=== PATIENT | female | born 1950 | race Caucasian/White ===

== ENCOUNTER → 2016-04-29 | Outpatient (CLI) | payer BC ==
[~2016-04-29] MED LIST: ASPI81TA57 PO; NAPR500T3 PO; OMEG10007 PO
--- NOTE | 2016-04-29 13:59 | MAMMOGRAPHY REPORT ---
BILATERAL DIGITAL SCREENING MAMMOGRAM WITH CAD: 04/29/2016 CLINICAL HISTORY: Routine screening. Patient has no complaints. TECHNIQUE: Current study was also evaluated with a Computer Aided Detection (CAD) system. COMPARISON: Comparison is made to exams dated: 05/16/2014 mammogram, 03/10/2013 mammogram, 2 mammogram, 03/04/2011 mammogram, 03/14/2010 stereotactic biopsy, and 03/03/2010 mammogram - [facility]. BREAST COMPOSITION: There are scattered areas of fibroglandular density in both breasts. FINDINGS: No suspicious masses, calcifications, or areas of architectural distortion are noted in e ither breast. There has been no significant interval change compared to prior exams. Scattered bilat eral benign-appearing calcifications are not significantly changed. A biopsy marker clip is again n oted in the left upper outer quadrant. Small benign appearing masses in the right upper outer quadr ant are stable, and likely represent benign intramammary lymph nodes. IMPRESSION: ACR BI-RADS CATEGORY 2: BENIGN There is no mammographic evidence of malignancy. A 1 year screening mammogram is recommended. The p atient will receive written notification of the results. Approximately 10% of breast cancers are not detected with mammography. A negative mammographic repor t should not delay biopsy if a clinically suggestive mass is present. Melissa Lutz M.D. /:04/29/2016 08:18:09 Lacemaker: Annette Cassidy, [facility] letter sent: Normal 1/2 BI-RADS Code: ACR BI-RADS Category 2: Benign
== END | disposition home or self-care (01) ==
LOC: C.MAMM 07:35
PROVIDERS: ATTEND Family Medicine
DX: Z12.31 Encounter for screening mammogram for malignant neoplasm of breast (principal)

== ENCOUNTER → 2016-05-26 | Outpatient (CLI) | payer BC | END | disposition home or self-care (01) | LOC: C.MAMM 09:14 | PROVIDERS: ATTEND Family Medicine | DX: Z78.0 Asymptomatic menopausal state (principal); M85.80 Other specified disorders of bone density and structure, unspecified site ==

== ENCOUNTER → 2016-09-05 | Outpatient (CLI) | payer BC ==
--- NOTE | 2016-09-05 09:34 | DIAGNOSTIC IMAGING REPORT ---
RIGHT FOOT MIN 3 VIEWS ROUTINE CLINICAL HISTORY: RIGHT FOOT PAIN Right pain COMPARISON: None. DISCUSSION: Moderate degenerative change of the intertarsal as well as tarsometatarsal complexes. No well-defined fracture dislocation. Heel spur. IMPRESSION: Moderate degenerative change. Heel spur. Electronically signed by: Jaylon Johnston M.D. 09/05/2016 9:32 AM Dictated Date/Time: 09/05/2016 9:31 AM
== END | disposition home or self-care (01) ==
LOC: C.LAB 08:59
PROVIDERS: ATTEND Family Medicine
DX: M79.671 Pain in right foot (principal); M77.31 Calcaneal spur, right foot

== ENCOUNTER → 2017-05-05 | Outpatient (CLI) | payer BC ==
--- NOTE | 2017-05-05 15:10 | MAMMOGRAPHY REPORT ---
BILATERAL DIGITAL SCREENING MAMMOGRAM TOMOSYNTHESIS WITH CAD: 05/05/2017 CLINICAL HISTORY: Routine screening. Patient has no complaints. TECHNIQUE: Breast tomosynthesis in addition to standard 2D mammography was performed. Current study was also evaluated with a Computer Aided Detection (CAD) system. COMPARISON: Comparison is made to exams dated: 04/29/2016 mammogram, 05/16/2014 mammogram, 03/10/2013 mammogram, 03/09/2012 mammogram, 03/04/2011 mammogram, and 03/14/2010 stereotactic biopsy - [facility]. BREAST COMPOSITION: There are scattered areas of fibroglandular density in both breasts. FINDINGS: No suspicious masses, calcifications, or areas of architectural distortion are noted in ei ther breast. There has been no significant interval change compared to prior exams. Scattered bilater al benign-appearing calcifications are not significantly changed. A biopsy marker clip is again note d within the left upper outer quadrant. IMPRESSION: ACR BI-RADS CATEGORY 2: BENIGN There is no mammographic evidence of malignancy. A 1 year screening mammogram is recommended. The pa tient will receive written notification of the results. Approximately 10% of breast cancers are not detected with mammography. A negative mammographic report should not delay biopsy if a clinically suggestive mass is present. Melissa Lutz M.D. /:05/05/2017 07:43:41 Napkin Band Wrapper: Annette Cassidy, [facility] letter sent: Normal 1/2 BI-RADS Code: ACR BI-RADS Category 2: Benign
== END | disposition home or self-care (01) ==
LOC: C.MAMM 07:09
PROVIDERS: ATTEND Family Medicine
DX: Z12.31 Encounter for screening mammogram for malignant neoplasm of breast (principal)

== ENCOUNTER 2018-11-06 18:12 | Inpatient (IN) ==
[2018-11-06] MEDS ORDERED: ONDANSETRON INJ 2 MG/ML 2 ML VIAL IV STA (18:16)
--- OUTSIDE RECORDS SUMMARY | 2018-11-06 18:16 | External Medical Summary | Continuity of Care Document ---
:1950 Author Name Aleah Horta, Provider Address Unavailable Unavailable , Care Team Providers Name Role Phone Margo Horta, Aldo Mcginnis Unavailable [email or web address] Unavailable Unavailable Unavailable Unavailable Unavailable Problems Active medical history not documented Allergies and Adverse Reactions Allergy history not documented Medications Medications not documented Procedures Procedures not documented Immunizations Immunizations not documented Plan of Treatment Planned Observations Planned Goals not documented Results No Known Results Results not documented
[2018-11-06] MEDS: HYDROmorphone INJ 0.5 MG/0.5 ML SYR IV PRN ×2 (18:26→19:39)
[2018-11-06 18:30] LABS: Basophils # (auto) 0.05 K/uL (0-0.2); Basophils % (auto) 0.5 %; Eosinophils # (auto) 0.36 K/uL (0-0.5); Hematocrit (blood only) 36.2 % (37-47); Hemoglobin 12.6 g/dL (12.0-16.0); Immature Granulocytes # (auto) 0.05 K/uL (0.00-0.02); Immature Granulocytes % (auto) 0.5 %; Lymphocytes # (auto) 1.92 K/uL (1.2-3.4); Lymphocytes % (auto) 21.1 %; Mean Corpuscular Hgb Conc 34.8 g/dL (32-36); Mean Corpuscular Volume 96.3 fL (80-100); Mean Platelet Volume 9.2 fL (7.4-10.4); Monocytes # (auto) 0.77 K/uL (0.11-0.59); Monocytes % (auto) 8.5 %; Neutrophils # (auto) 5.95 K/uL (1.4-6.5); Neutrophils % (auto) 65.4 %; Platelet Count 195 K/uL (130-400); RDW Coefficient of Variation 13.2 % (11.5-14.5); RDW Standard Deviation 46.2 fL (36.4-46.3); Red Blood Count 3.76 M/uL (4.2-5.4)
[2018-11-06 18:47] LABS: Albumin Level 3.9 gm/dl (3.4-5.0); BUN Creatinine Ratio 12.9 (10-20); Calcium 8.6 mg/dl (8.5-10.1); Creatinine Clr Calc Pharmacy 73.7 ml/min; Est GFR (African American) 85.3; Est GFR (Non-African American) 73.6; Potassium 3.1 mmol/L (3.5-5.1)
[2018-11-06 18:50] LABS: Bilirubin,Total 0.5 mg/dl (0.2-1); Globulin 4.1 gm/dl (2.5-4.0)
--- NOTE | 2018-11-06 19:46 | CT Scan Report ---
CT chest wo con CT DOSE: 436.39 mGy.cm HISTORY: Trauma fall, right rib pain TECHNIQUE: Multiaxial CT images of the chest were performed without contrast. A dose lowering techni que was utilized adhering to the principles of ALARA. COMPARISON: None. FINDINGS: Small parenchymal contusion lateral and inferior aspect right chest. There are no regions o f consolidation. There is a small right basilar pneumothorax identified anteriorly. Says maximum pleu ral separation at 1 cm. There is no significant shift of the cardiomediastinal silhouette. The left lung is considered clear. There are fractures of the right fourth fifth sixth and seventh ribs. These are seen in the mid axill carlos line on the right. In addition, there are fractures of the right Posterior seventh eighth and ninth ribs. The eighth rib fracture at its posterior aspect is comminute d. There are nondisplaced cortical fractures of the right transverse process of T7-T10. The thoracic spi ne Has several moderate compression deformities in the low thoracic region felt to be old by CT crite larisa. No acute compression deformity is seen. IMPRESSION: 1. Small right pneumothorax with a maximum pleural separation of 1 cm. 2. Mild multifocal lung contusions right mid and right lower lung region. 3. Multifocal fractures of the right fourth through ninth ribs 4. The posterior right eighth rib fracture is comminuted and angled. 5. Small right pleural effusion. 6. Fractures of the right transverse processes of T7-T10. 7. Several old compression deformities of the low thoracic region. The above report was generated using voice recognition software. It may contain grammatical, syntax or spelling errors. Electronically signed by: Jaylon Johnston M.D. 11/06/2018 7:44 PM
--- NOTE | 2018-11-06 20:59 | XRay Report ---
XR chest 1V portable CLINICAL HISTORY: rib fx and pneumo on CT. Baseline CXr dyspnea COMPARISON STUDY: CT same date FINDINGS: Small right apical pneumothorax. Maximum pleural separation is 1.7 cm. Scattered bilateral atelectatic change. No significant cardiac enlargement. IMPRESSION: Small right apical pneumothorax. Scattered atelectatic changes bilaterally. The above report was generated using voice recognition software. It may contain grammatical, syntax or spelling errors. Electronically signed by: Jaylon Johnston M.D. 11/06/2018 8:57 PM
--- NOTE | 2018-11-06 21:37 | History & Physical Report ---
Date of Service November 06, 2018 Assessment & Plan (1) Traumatic pneumohemothorax: 68F with PMH OA, here with mechanical fall with resultant rib fractures and traumatic pneumothorax requiring 1-3L via NC. States she was getting out of her above ground pool when she slipped on the ladder and hit her right side of her back on the side of the pool and then again on the ladder itself. She came to ED for further management, and was not short of breath, but was complaining of pain in that area. CT scan revealed multifocal fractures of the right fourth through ninth ribs, and small right pneumothorax max 1cm. CXR upright for baseline showed small right apical pneumothorax with max pleural separation 1.7 cm. Pt did not require oxygen upon arrival to the ED, but did after receiving IV dilaudid. Denies chest tightness or dyspnea. Endorses some bruising on right upper arm. Daughter and friend in the room corroborate the history. Nonrebreather mask was placed, and 15L O2 applied for treatment benefit not due to hypoxia. Traumatic pneumothorax 17mm -CT surgery consulted, appreciate recs: serial CXR at midnight, and AM -O2 as needed - desats with IV opioids temporarily -pain control with scheduled PO tramadol, then IV dilaudid PRN severe pain, tylenol -prn zofran -incentive spirometry to prevent complications like PNA -will hold off on chemical anticoagulation ppx given traumatic injury to chest FEN/GI: heart healthy diet. No fluids indicated at this time. DVT ppx: SCDs will hold off on chemical anticoagulation ppx given traumatic injury to chest CODE STATUS: FULL DISPO: Tele for observation, pain mgmt. Home once serial CXRs stable, pain control with PO medication Other ongoing medical problems Osteoarthritis: hold Mobic in light of chest trauma risk of bleeding A Stan RINALDI PGY3 FCM Resident (2) Pulmonary contusion: (3) Multiple fractures of ribs of right side: (4) Fracture of transverse process of thoracic vertebra: (5) Fall from slip, trip, or stumble: History of Present Illness Chief Complaint: fall onto ladder from 2 feet, rib fracture, traumatic pneumothorax Primary Care Provider: Yusuf Pichardo MD 68F with PMH OA who presents after mechanical fall with resultant rib fractures and traumatic pneumothorax requiring 1-3L via NC. States she was getting out of her above ground pool when she slipped on the ladder and hit her right side of her back on the side of the pool and then again on the ladder itself. She came to ED for further management, and was not short of breath, but was complaining of pain in that area. CT scan revealed multifocal fractures of the right fourth through ninth ribs, and small right pneumothorax max 1cm. CXR upright for baseline showed small right apical pneumothorax with max pleural separation 1.7 cm. Pt did not require oxygen upon arrival to the ED, but did after receiving IV dilaudid. Denies chest tightness or dyspnea. Endorses some bruising on right upper arm. Daughter and friend in the room corroborate the history. PMH arthritis, on mobic PSH noncontributory SH Nonsmoker. Lives at home, independent Allergies Allergy/AdvReac Type Severity Reaction Status Date / Time No Known Allergies Allergy Unverified 11/07/15 06:17 Home Medications Home Medications Medication Instructions Recorded Confirmed Type acetaminophen [Tylenol Arthritis 650 mg PO Q8H #30 tab 11/12/18 Rx Pain] ibuprofen 600 mg PO Q8H #30 tab 11/12/18 Rx oxycodone 5 mg PO QID #45 cap 11/12/18 Rx Past Med/Surg History Medical History TIA (transient ischemic attack) (Chronic) Fall from slip, trip, or stumble (Acute) Social History Preferred Language: Turkmen Communication Ability: Effective Motion Picture Narrator Required: No Beliefs That Will Affect Care: None Current Living Situation Comment: Daughter-Hayes Other Information That Helps Us Care for You: No Feels Safe at Home: Yes Safety Concerns: Feels Safe At This Time Smoking Status: Never smoker Hx Alcohol Use: Yes Alcohol type: beer Hx Substance Use: No Review of Systems Review of Systems: All systems reviewed & are unremarkable except as noted in HPI & below Physical Exam Physical Exam: Vitals noted and within normal limits with the exception of HTN GENERAL: Awake, alert to person, place, and time, nontoxic-appearing, in no distress. HENT: Normocephalic, atraumatic. Nasal cannula in place. Mucus membranes appear moist. EYES: Normal conjunctiva. Sclera non-icteric. EOMI. NECK: Supple. Full range of motion. No JVD. Trachea midline. RESPIRATORY: Clear to auscultation. Normal work of breathing. CARDIAC: Regular rate, normal rhythm. Extremities warm and well perfused, ABDOMEN: Soft, non-distended. Bowel sounds are normal. LOWER EXTREMITIES: Inspection of calves reveal equal size bilaterally. They are non-tender. No edema. No discoloration. NEURO: No gross focal motor deficits noted. Sensation in tact. CN II-XII grossly in tact. . PSYCH: Appropriate mood and affect. Cooperative. Examined with daughter and friend at bedside Exam as done by Jennifer Pierce MD, [employer]. Results & Data Vital Signs (Past 12 Hours) Vital Signs Temp Pulse Pulse Resp BP BP Pulse Ox 11/06/18 20:42 94 H 162/93 H 100 11/06/18 19:54 100 11/06/18 19:40 95 H 19 129/66 98 11/06/18 18:50 82 19 156/95 H 99 11/06/18 18:32 98 11/06/18 18:20 36.7 C 99 H 22 176/96 H 96 Laboratory Results 11/06/18 11/06/18 Range/Units 18:25 18:25 WBC 9.10 (4.8-10.8) K/uL RBC 3.76 L (4.2-5.4) M/uL Hgb 12.6 (12.0-16.0) g/dL Hct 36.2 L (37-47) % MCV 96.3 (80-100) fL MCH 33.5 (25-34) pg MCHC 34.8 (32-36) g/dL RDW Std Deviation 46.2 (36.4-46.3) fL RDW Coeff of Perry 13.2 (11.5-14.5) % Plt Count 195 (130-400) K/uL MPV 9.2 (7.4-10.4) fL Immature Gran % (Auto) 0.5 % Neut % (Auto) 65.4 % Lymph % (Auto) 21.1 % Phillips % (Auto) 8.5 % Eos % (Auto) 4.0 % Baso % (Auto) 0.5 % Immature Gran # (Auto) 0.05 H (0.00-0.02) K/uL Neut # (Auto) 5.95 (1.4-6.5) K/uL Lymph # (Auto) 1.92 (1.2-3.4) K/uL Phillips # (Auto) 0.77 H (0.11-0.59) K/uL Eos # (Auto) 0.36 (0-0.5) K/uL Baso # (Auto) 0.05 (0-0.2) K/uL Sodium 133 L (136-145) mmol/L Potassium 3.1 L (3.5-5.1) mmol/L Chloride 97 L (98-107) mmol/L Carbon Dioxide 23 (21-32) mmol/L Anion Gap 13.0 H (3-11) BUN 11 (7-18) mg/dl Creatinine 0.81 (0.6-1.2) mg/dl Est Cr Clr Drug Dosing 73.7 ml/min Est GFR ( Amer) 85.3 Est GFR (Non-Af Amer) 73.6 BUN/Creatinine Ratio 12.9 (10-20) Glucose 105 H (70-99) mg/dl Calcium 8.6 (8.5-10.1) mg/dl Total Bilirubin 0.5 (0.2-1) mg/dl AST 48 H (15-37) U/L ALT 36 (12-78) U/L Alkaline Phosphatase 106 (45-117) U/L Total Protein 8.0 (6.4-8.2) gm/dl Albumin 3.9 (3.4-5.0) gm/dl Globulin 4.1 H (2.5-4.0) gm/dl Albumin/Globulin Ratio 1.0 (0.9-2) Supervising Physician Co-Signing Physician Notes This pt was seen/examined in conjunction with resident MD Rahel Pierce. Orders and plan of admission formulated with resident. 68 y/o F admitted with a traumatic pneumothorax. She was exhibiting hypoxia out of proportion to size of pneumo. Admitted after discussion with thoracic surgery. OE: AAO x 3 S1,2 R CTAB - cannot discern disscrete area without air entry NT, ND No CCE P: Overnight obs, 02 protocol - eval by thoracic surgery - pain control as needed PG Care Time/CCT Total # of Minutes Spent Total Time Spent with Patient: Total time spent is greater than 50% in coordination of care (as documented) at patient's floor/unit and/or counseling patient: Resident Activity Tracking Resident Involvement: Resident Care Provided Care Provided: Adult Hospital Medicine (1) Multiple fractures of ribs of right side Encounter type: initial encounter Fracture type: closed Qualified Code(s): S22.41XA - Multiple fractures of ribs, right side, initial encounter for closed fracture (2) Fracture of transverse process of thoracic vertebra Encounter type: initial encounter Fracture type: closed Qualified Code(s): S22.009A - Unspecified fracture of unspecified thoracic vertebra, initial encounter for closed fracture (3) Pulmonary contusion Encounter type: initial encounter Laterality: right Qualified Code(s): S27.321A - Contusion of lung, unilateral, initial encounter
--- NOTE | 2018-11-06 21:52 | Emergency Department Note ---
Entered by Penny Davis acting as a scribe for Ravindra Funes MD ED Provider Note CHIEF COMPLAINT: fall HISTORY OF PRESENT ILLNESS: The patient is a 68 year old female who presents to the Emergency Room with complaints of right sided pain after a fall that occurred just prior to arrival. The patient states that she was coming out of an over-ground pool when she fell onto a ladder and then onto the ground. The patient reports that the ladder went into the right side under her am and then she fell onto the ground on her right side. The patient states that it hurts to breathe and she has back pain on the medial right side of her spine. The patient states that she has not been nauseous before this event and has been recently vomiting. At this time the patient rates her pain severity at a 10. The patient states that her tetanus shot is up to date. Pt denies LOC, headache, fevers, chills, diaphoresis, visual changes, neck pain, chest pain, abdominal pain,, numbness, weakness, or other complaints. REVIEW OF SYSTEMS: See HPI for pertinent positives and negatives. A total of ten systems were reviewed and were otherwise negative. PMHx/PSHx: Fall SOCIAL HISTORY: Patient lives at home. PHYSICAL EXAM: GENERAL: Awake, alert, uncomfortable, moderate distress and actively vomiting. HENT: Normocephalic, atraumatic. Oropharynx unremarkable. EYES: PERRL. Normal conjunctiva. Sclera non-icteric. NECK: Inspection normal. Non-tender. Supple. No nuchal rigidity. FROM. No masses. RESPIRATORY: Clear to auscultation. No wheezes. No rales. Normal respiratory effort. CARDIAC: Normal rate. Normal rhythm. No murmurs. No rubs. Extremities warm and well perfused. Pulses equal. No JVD. GI: Soft, non-distended. No tenderness to palpation. No rebound or guarding. No masses. RECTAL: Deferred. MUSCULOSKELETAL: Chest examination reveals no tenderness. The back is symmetrical on inspection without obvious abnormality. Posterior medial right rib tenderness to palpation. Abrasion to the left shoulder.. No joint edema. LOWER EXTREMITIES: Calves are equal size bilaterally and non-tender. No edema. No discoloration. NEURO: Normal sensorium. No sensory or motor deficits noted. SKIN: No rash or jaundice noted. EMERGENCY DEPARTMENT COURSE: 1814: The patient was evaluated in room A2, and a complete history and physical examination were performed. 2000: I reviewed the patient's case with Dr. Reyes who recommended admission for pain management and repeat a chest x-ray in four hours and then in the morning. I have to consult with the hospitalist to se if we can have her admitted. 2018: I reviewed the patient's case with Dr. Pierce, who is the resident of Dr. Barnes - [facility] Hospitalist. She will discuss the case with him for possible admission and let us know if they will admit the patient. 2054: I reassessed the patient and found that she is resting comfortably. 2143: Dr. Pierce and Dr. Barnes have agreed with the treatment plan and will admit the patient for further evaluation. MEDICAL DECISION MAKING: A2 Prior records/ancillary studies reviewed. Triage Nursing notes reviewed and agree them. Additional history obtained from family. The patient's history was concerning for traumatic injury Differential diagnosis: Etiologies such as fracture, dislocation, intra-abdominal, pneumothorax, intrathoracic , intracranial, neurologic, as well as other traumatic pathologies were entertained. Physical examination findings: Isolated right posterior rib tenderness. No head injury. Extremities are atraumatic. C-spine normal. Lungs clear and breath sounds equal. ER treatment provided: Monitoring IV Zofran IV Dilaudid times multiple doses Tetanus up-to-date. On reassessment the patient felt better. Diagnostic interpretation by me: A 12 lead ECG revealed no emergent pathology. The labs revealed an unremarkable CBC and chemistry panel. Imaging studies: CT scan of the chest was performed. Patient has multiple right-sided rib fractures, small contusion, and small pneumothorax. There is also transverse process fractures noted. Baseline chest x-ray was performed and does reveal the small right-sided pneumothorax. The patient is doing well but still has significant pain on movement. She will need to be admitted for pain control. Consultation: A consultation was placed with thoracic surgeon on-call, Dr. Diaz Reyes. The case was discussed and diagnostics were reviewed. He agreed that the patient needs to be admitted. He recommended a 4-hour repeat chest x-ray and then a repeat chest x-ray in the morning and he will see the patient. He is available if the patient has any worsening problems or the repeat imaging shows an acute problem. He asked for the patient to be admitted to the medical [facility]. A consultation was placed with Dr. Barnes. I discussed the case with his resident Dr. Pierce. The patient was evaluated in the ER for further management. IMPRESSION: Pneumothorax Multiple right rib fractures Pulmonary contusion Transverse process fracture T7 to T10 PLAN: Being evaluate by hospitalist The scribe's documentation has been prepared under my direction and personally reviewed by me in its entirety. I confirm that the note above accurately reflects all work, treatment, procedures, and medical decision making performed by me. CRITICAL CARE: I have personally spent greater than 35 minutes of critical care time in the direct management of this patient. This includes bedside care, interpretation of diagnostic studies, and testing, discussion with consultants, patient, and family members, and other required patient management activities. This 35 minutes is in excess of all separately billable procedures. Impression & Plan Pneumothorax, Multiple fractures of ribs of right side, Pulmonary contusion, Fracture of transverse process of thoracic vertebra Past Med/Surg History Medical History TIA (transient ischemic attack) (Chronic) Fall from slip, trip, or stumble (Acute) Social History Preferred Language: Slovenian Feels Safe at Home: Yes Smoking Status: Never smoker Results & Data Vital Signs Vital Signs - 24 hr 11/06/18 18:20 11/06/18 18:32 11/06/18 18:50 Temperature 36.7 C Temperature Source Oral Sepsis Recent Fever Within 48 Hours No Sepsis New/Unexplained Change in Mental Status No Sepsis Action Taken by Nursing No Action Required Pulse Rate 99 H Pulse Rate [Apical] 82 Respiratory Rate 22 19 Respiratory Effort / Characteristics Non-Labored Blood Pressure 176/96 H Blood Pressure [Left Arm] 156/95 H Blood Pressure Mean 122 Blood Pressure Mean [Left Arm] 115 Blood Pressure Position Sitting Blood Pressure Position [Left Arm] Sitting Pulse Oximetry 96 98 99 Oxygen Delivery Method Room Air Room Air Room Air Oxygen Flow Rate 11/06/18 19:40 11/06/18 19:54 11/06/18 20:42 Temperature Temperature Source Sepsis Recent Fever Within 48 Hours Sepsis New/Unexplained Change in Mental Status Sepsis Action Taken by Nursing Pulse Rate Pulse Rate [Apical] 95 H 94 H Respiratory Rate 19 Respiratory Effort / Characteristics Blood Pressure Blood Pressure [Left Arm] 129/66 162/93 H Blood Pressure Mean Blood Pressure Mean [Left Arm] 87 116 Blood Pressure Position Blood Pressure Position [Left Arm] Pulse Oximetry 98 100 100 Oxygen Delivery Method Room Air Nasal Cannula Non-rebreather Oxygen Flow Rate 3 15 Home Medications Current Medication List: was personally reviewed by me Laboratory Data Attestation: I reviewed the patient's lab results. Result diagrams: 11/06/18 18:25 11/06/18 18:25 Lab Results 11/06/18 11/06/18 Range/Units 18:25 18:25 WBC 9.10 (4.8-10.8) K/uL RBC 3.76 L (4.2-5.4) M/uL Hgb 12.6 (12.0-16.0) g/dL Hct 36.2 L (37-47) % MCV 96.3 (80-100) fL MCH 33.5 (25-34) pg MCHC 34.8 (32-36) g/dL RDW Std Deviation 46.2 (36.4-46.3) fL RDW Coeff of [place] 13.2 (11.5-14.5) % Plt Count 195 (130-400) K/uL MPV 9.2 (7.4-10.4) fL Immature Gran % (Auto) 0.5 % Neut % (Auto) 65.4 % Lymph % (Auto) 21.1 % [place] % (Auto) 8.5 % Eos % (Auto) 4.0 % Baso % (Auto) 0.5 % Immature Gran # (Auto) 0.05 H (0.00-0.02) K/uL Neut # (Auto) 5.95 (1.4-6.5) K/uL Lymph # (Auto) 1.92 (1.2-3.4) K/uL [place] # (Auto) 0.77 H (0.11-0.59) K/uL Eos # (Auto) 0.36 (0-0.5) K/uL Baso # (Auto) 0.05 (0-0.2) K/uL Sodium 133 L (136-145) mmol/L Potassium 3.1 L (3.5-5.1) mmol/L Chloride 97 L (98-107) mmol/L Carbon Dioxide 23 (21-32) mmol/L Anion Gap 13.0 H (3-11) BUN 11 (7-18) mg/dl Creatinine 0.81 (0.6-1.2) mg/dl Est Cr Clr Drug Dosing 73.7 ml/min Est GFR ( Amer) 85.3 Est GFR (Non-Af Amer) 73.6 BUN/Creatinine Ratio 12.9 (10-20) Glucose 105 H (70-99) mg/dl Calcium 8.6 (8.5-10.1) mg/dl Total Bilirubin 0.5 (0.2-1) mg/dl AST 48 H (15-37) U/L ALT 36 (12-78) U/L Alkaline Phosphatase 106 (45-117) U/L Total Protein 8.0 (6.4-8.2) gm/dl Albumin 3.9 (3.4-5.0) gm/dl Globulin 4.1 H (2.5-4.0) gm/dl Albumin/Globulin Ratio 1.0 (0.9-2) Administered Medications Hydromorphone HCl (Dilaudid) 0.5 mg IV Q15M PRN PRN Reason: Pain Stop: 11/20/18 18:29 Last Admin: 11/06/18 19:39 Dose: 0.5 mg Documented by: [id number] Admin: 11/06/18 18:26 Dose: 0.5 mg Documented by: [id number] Discontinued Medications Ondansetron HCl (Zofran) 4 mg IV NOW STA Stop: 11/06/18 18:17 Last Admin: 11/06/18 18:25 Dose: 4 mg Documented by: [id number] Imaging Data Radiologist's Impression: Radiology results as stated below per my review and the radiologist's interpretation: CT chest wo con CT DOSE: 436.39 mGy.cm HISTORY: Trauma fall, right rib pain TECHNIQUE: Multiaxial CT images of the chest were performed without contrast. A dose lowering technique was utilized adhering to the principles of ALARA. COMPARISON: None. FINDINGS: Small parenchymal contusion lateral and inferior aspect right chest. There are no regions of consolidation. There is a small right basilar pneum othorax identified anteriorly. Says maximum pleural separation at 1 cm. There is no significant shift of the cardiomediastinal silhouette. The left lung is considered clear. There are fractures of the right fourth fifth sixth and seventh ribs. These are seen in the mid axillary line on the right. In addition, there are fractures of the right Posterior seventh eighth and ninth ribs. The eighth rib fracture at its posterior aspect is comminuted. There are nondisplaced cortical fractures of the right transverse process of T7- T10. The thoracic spine Has several moderate compression deformities in the low thoracic region felt to be old by CT criteria. No acute compression deformity is seen. IMPRESSION: 1. Small right pneumothorax with a maximum pleural separation of 1 cm. 2. Mild multifocal lung contusions right mid and right lower lung region. 3. Multifocal fractures of the right fourth through ninth ribs 4. The posterior right eighth rib fracture is comminuted and angled. 5. Small right pleural effusion. 6. Fractures of the right transverse processes of T7-T10. 7. Several old compression deformities of the low thoracic region. The above report was generated using voice recognition software. It may contain grammatical, syntax or spelling errors. Electronically signed by: Jaylon Johnston M.D. 11/06/2018 7:44 PM XR chest 1V portable CLINICAL HISTORY: rib fx and pneumo on CT. Baseline CXr dyspnea COMPARISON STUDY: CT same date FINDINGS: Small right apical pneumothorax. Maximum pleural separation is 1.7 cm. Scattered bilateral atelectatic change. No significant cardiac enlargement. IMPRESSION: Small right apical pneumothorax. Scattered atelectatic changes bilaterally. The above report was generated using voice recognition software. It may contain grammatical, syntax or spelling errors. Electronically signed by: Jaylon Johnston M.D. 11/06/2018 8:57 PM ECG Data Attestation: I personally reviewed and interpreted this ECG as follows: Indication: other (fall) Rate (beats per minute): 87 Rhythm: normal sinus Findings: + RBBB (Incomplete) and + left axis deviation; no PAC, no PVC, no ST depression and no ST elevation Blood Pressure Blood Pressure Findings: Elevated blood pressure Blood Pressure Disposition: further management by hospitalist Head Trauma GCS Score: 15 Discharge Plan Visit Data Chief Complaint: Fall ED Provider: Ravindra Funes Discharge Problem: Pneumothorax, Multiple fractures of ribs of right side, Pulmonary contusion, Fracture of transverse process of thoracic vertebra Patient Disposition: Being Evaluated by Hospitalist Forms Stand Alone Forms: My [facility] Prescriptions Prescriptions: No Action meloxicam [Mobic] 15 mg tablet 15 mg PO DAILY PRN (Reason: Pain) RF: 0 Referrals Referrals: Yusuf Pichardo MD [Primary Care Provider] - Discharge Problem: Pneumothorax Qualifiers: Pneumothorax type: unspecified pneumothorax Qualified Code(s): J93.9 - Pneumothorax, unspecified Multiple fractures of ribs of right side Qualifiers: Encounter type: initial encounter Fracture type: closed Qualified Code(s): S22.41XA - Multiple fractures of ribs, right side, initial encounter for closed fracture Pulmonary contusion Qualifiers: Encounter type: initial encounter Laterality: right Qualified Code(s): S27.321A - Contusion of lung, unilateral, initial encounter Fracture of transverse process of thoracic vertebra Qualifiers: Encounter type: initial encounter Fracture type: closed Qualified Code(s): S22.009A - Unspecified fracture of unspecified thoracic vertebra, initial encounter for closed fracture The scribe's documentation has been prepared under my direction and personally reviewed by me in its entirety. I confirm that the note above accurately reflects all work, treatment, procedures, and medical decision making performed by me.
[2018-11-06] MEDS ORDERED: POLYETHYLENE (MIRALAX) 17 GM PACK PO PRN (23:21)
[2018-11-06] MEDS ORDERED: MAGNESIUM HYDROXIDE SUSP 30 ML UDC PO PRN (23:21)
[2018-11-06] MEDS ORDERED: ALUMINUM/MAGNESIUM SUSP 30 ML UDC PO PRN (23:21)
[2018-11-06] MEDS ORDERED: ACETAMINOPHEN 325 MG TAB PO PRN (23:21)
[2018-11-06] MEDS ORDERED: ONDANSETRON INJ 2 MG/ML 2 ML VIAL IV PRN (23:21)
[2018-11-07] MEDS: TRAMADOL HCL 50 MG TABLET PO SCH ×3 (02:07→14:48)
--- NOTE | 2018-11-07 06:25 | XRay Report ---
XR chest 1V portable HISTORY: 68 years-old Female traumatic pneumothorax follow-up study in a patient with right-sided pn eumothorax COMPARISON: Chest radiograph and CT of the chest 11/06/2018 TECHNIQUE: Portable AP view of the chest FINDINGS: Cardiomediastinal and hilar silhouettes appear unchanged. Calcification of the thoracic aortic arch. Subsegmental right basilar opacities. Right-sided pneumothorax redemonstrated, pleural separation at the apex measuring up to 1.9 cm which is unchanged. Pleural separation laterally measures up to appro ximately 1.9 cm, previously 1.7 cm. Multiple acute and displaced right-sided rib fractures redemonstr ated. Mild right hemidiaphragmatic elevation. Degenerative changes of the shoulders and spine with cerda ggested right shoulder rotator cuff calcific tendinosis. IMPRESSION: 1. Unchanged small to moderate right-sided apical pneumothorax with multiple acute and mildly displac ed right-sided rib fractures redemonstrated. 2. Mild right hemidiaphragmatic elevation with right basilar opacities suggestive of atelectasis. The above report was generated using voice recognition software. It may contain grammatical, syntax o r spelling errors. Electronically signed by: Giacomo Lowe M.D. 11/07/2018 6:23 AM
--- NOTE | 2018-11-07 07:28 | XRay Report ---
XR chest 1V portable HISTORY: 68 years-old Female traumatic pneumothorax follow study in a patient with right-sided pneum othorax COMPARISON: Chest radiograph of same day at 12:52 AM TECHNIQUE: Portable AP view of the chest FINDINGS: Right-sided apical pneumothorax redemonstrated, pleural separation of 1.8 cm, unchanged. Multiple acu te and mildly displaced right-sided rib fractures are redemonstrated. Mild right hemidiaphragmatic el evation. Subsegmental bibasilar opacities, slightly progressed of the left. Cardiomediastinal and hil ar silhouettes are unchanged. Questioned trace pleural effusions. No overt pulmonary edema. Degenerat [place] changes of the shoulders and spine. IMPRESSION: 1. Unchanged right apical pneumothorax with multiple acute and mildly displaced right-sided rib fract ures redemonstrated. 2. Slightly progressed bibasilar atelectasis. 3. Suggestion of trace pleural effusions. The above report was generated using voice recognition software. It may contain grammatical, syntax o r spelling errors. Electronically signed by: Giacoom Lowe M.D. 11/07/2018 7:27 AM
[2018-11-07] MEDS: ONDANSETRON INJ 2 MG/ML 2 ML VIAL IV PRN (08:00)
[2018-11-07] MEDS: HYDROmorphone INJ 0.5 MG/0.5 ML SYR IV PRN ×2 (08:00→11:41)
[2018-11-07] MEDS ORDERED: PNEUMOCOCCAL ADMINISTRATION CHARGE ONE (08:00)
[2018-11-07] MEDS ORDERED: PNEUMOCOCCAL POLYSACCHARIDES 25 MCG/0.5 ML VIAL/SYR IM ONE (08:00)
[2018-11-07] MEDS: CHOLECALCIFEROL 1,000 UNITS TAB PO SCH (11:41)
[2018-11-07] MEDS ORDERED: TRAMADOL HCL 50 MG TABLET PO PRN (13:10)
[2018-11-07] MEDS ORDERED: TRAMADOL HCL 50 MG TABLET PO SCH (13:15)
--- NOTE | 2018-11-07 13:29 | Family Medicine Progress Note ---
Date of Service November 07, 2018 Assessment & Plan (1) Traumatic pneumohemothorax: Ms. Cuevas is an otherwise healthy 68 year-old woman who was admitted on 11/06/18 for a traumatic pneumothroax secondary to a mechanical fall. A CT scan in the ED revealed fractures of the R 4th through 9th ribs, non- displaced transverse process fractures of T7-T10 vertebrae, and small right pneumothorax, max size 1cm. CXR showed small right apical pneumothorax with max pleural separation 1.7 cm. Patient admitted for serial monitoring and pain management. (1) Traumatic pneumothorax, size 17mm -CT surgery consulted, appreciate recs -follow-up CXRs at 11:55pm (11/06) and 6:00am (11/07) were stable -patient on 2L O2 via NC as she desatted with IV opioids administration overnight -pain control regimen: Lidocaine 5% patch qAM, Acetaminophen, 650mg, PO, scheduled q6h, Toradol, 10mg, PO, scheduled q6h, Tramadol, 50mg, q4h, prn, and Dilaudid, 0.25mg, IV, q2h, prn. -prn zofran for nausea -incentive spirometry to prevent complications like PNA -patient ordered Miralax 14g, PO, daily given risk for ileus in light of transverse process fracture and opioid use (2) Hypokalemia -K level 3.1 (11/07) -order replacement potassium citrate, 40mEq, PO, once -continue to monitor with daily BMP (3) Vertebral Compression Fractures -noted as incidental finding on CT (multiple fractures felt to be old) -ordered Vitamin D, 2,000 IU, PO, daily -recommended discussing possible DEXA scan with PCP as an outpatient (4) Osteoarthritis -holding home meloxicam given elevated risk of bleeding secondary to sustained chest trauma FEN/GI: heart healthy diet. DVT ppx: Bilateral SCDs CODE STATUS: FULL DISPO: Med/Surg Present on Admission?: Yes (2) Pulmonary contusion: (3) Multiple fractures of ribs of right side: (4) Fracture of transverse process of thoracic vertebra: (5) Fall from slip, trip, or stumble: Supervising Physician Co-Signing Physician Notes I personally examined the patient and verified all chavarria points of history and exam, discussed case, and agree with decision making with Dr Abarca. pain about an 8 constantly. meds help some then wear off. IV helps much more. vitals noted nad breathing unlabored no pallor or icterus. fall (mechanical) with multiple rib fractures and transverse process fractures - escalate/regulate pain control (lidocaine patch, scheduled tylenol, add NSAID, continue tramadol and dilauded as prn), bowel regimen thoracic compression fractures -presumed osteoporosis -vitamin D for now -outpt w/u for bone health if ambulation doesn't improve may need pharmacologic DVT proph - will watch for mobility into tomorrow stable for med surg Subjective Patient reports not feeling well - she explains she did not sleep well at all last night. During bedside evaluation, patient requested Dilaudid and Zofran, both of which were ordered as prn. She has no further complaints other than R sided pain localized to site of injury and nausea. Review of Systems Review of Systems: Constitutional: No fevers, chills, night sweats, or fatigue or unintentional weight loss HEENT: No changes in vision, sore throat, rhinorrhea, voice hoarseness, hearing loss Cardiovascular: No chest pain, palpitations or pedal edema Respiratory: No SOB, cough, wheezing; Patient reports pain on deep inspiration Gastrointestinal: No nausea, vomiting, diarrhea, constipation, abdominal pain, or difficulty swallowing Genitourinary: No dysuria, incontinence, urgency, hematuria or increased urinary frequency Integumentary: No rash, breaks in skin Musculoskeletal: No arthralgias or myalgias, no joint swelling Neurologic: No weakness, numbness, paresthesias, headaches Psychiatry: No feelings of depression or anxiety Physical Exam Constitutional: well developed, well nourished and cooperative pink hair Eyes: + anicteric sclerae Respiratory: normal respiratory effort; does not use accessory muscles, no cough and no nasal flaring Auscultation: + bronchovesicular breath sounds (R lower lobe (consistent with area on CT of pulmonary edema)); no crackles, no wheezes and no pleural rub shallow respirations (secondary to inspiratory pain) with a continuous rhythm; posterior chest wall tender with application of stethoscope Cardiovascular: RRR, no murmur, no edema Heart Sounds: normal S1 and normal S2; no click, no gallop, no murmur and no cardiac rub Gastrointestinal (Abdomen): normal bowel sounds, soft, nontender, no hepatosplenomegaly Inspection/Auscultation: abdomen not distended Percussion/Palpation: abdomen soft Neurologic: awake Psychiatric: Orientation: alert and oriented x 3 Results & Data Vital Signs (Past 12 Hours) Vital Signs Temp Pulse Pulse Resp BP Pulse Ox 11/07/18 11:08 36.4 C L 72 18 118/70 99 11/07/18 08:00 82 11/07/18 07:13 36.5 C 80 22 136/76 99 11/07/18 03:11 36.6 C 86 19 144/68 H 100 Laboratory Results 11/06/18 11/06/18 11/06/18 Range/Units 18:25 18:25 18:25 WBC 9.10 (4.8-10.8) K/uL RBC 3.76 L (4.2-5.4) M/uL Hgb 12.6 (12.0-16.0) g/dL Hct 36.2 L (37-47) % MCV 96.3 (80-100) fL MCH 33.5 (25-34) pg MCHC 34.8 (32-36) g/dL RDW Std Deviation 46.2 (36.4-46.3) fL RDW Coeff of [place] 13.2 (11.5-14.5) % Plt Count 195 (130-400) K/uL MPV 9.2 (7.4-10.4) fL Immature Gran % (Auto) 0.5 % Neut % (Auto) 65.4 % Lymph % (Auto) 21.1 % [place] % (Auto) 8.5 % Eos % (Auto) 4.0 % Baso % (Auto) 0.5 % Immature Gran # (Auto) 0.05 H (0.00-0.02) K/uL Neut # (Auto) 5.95 (1.4-6.5) K/uL Lymph # (Auto) 1.92 (1.2-3.4) K/uL [place] # (Auto) 0.77 H (0.11-0.59) K/uL Eos # (Auto) 0.36 (0-0.5) K/uL Baso # (Auto) 0.05 (0-0.2) K/uL Sodium 133 L (136-145) mmol/L Potassium 3.1 L (3.5-5.1) mmol/L Chloride 97 L (98-107) mmol/L Carbon Dioxide 23 (21-32) mmol/L Anion Gap 13.0 H (3-11) BUN 11 (7-18) mg/dl Creatinine 0.81 (0.6-1.2) mg/dl Est Cr Clr Drug Dosing 73.7 ml/min Est GFR ( Amer) 85.3 Est GFR (Non-Af Amer) 73.6 BUN/Creatinine Ratio 12.9 (10-20) Glucose 105 H (70-99) mg/dl Calcium 8.6 (8.5-10.1) mg/dl Total Bilirubin 0.5 (0.2-1) mg/dl AST 48 H (15-37) U/L ALT 36 (12-78) U/L Alkaline Phosphatase 106 (45-117) U/L Total Protein 8.0 (6.4-8.2) gm/dl Albumin 3.9 (3.4-5.0) gm/dl Globulin 4.1 H (2.5-4.0) gm/dl Albumin/Globulin Ratio 1.0 (0.9-2) Hepatitis C Ab Screen Neg (Neg) Diagnostic Findings XR chest 1V portable HISTORY: 68 years-old Female traumatic pneumothorax follow study in a patient with right-sided pneumothorax COMPARISON: Chest radiograph of same day at 12:52 AM TECHNIQUE: Portable AP view of the chest FINDINGS: Right-sided apical pneumothorax redemonstrated, pleural separation of 1.8 cm, unchanged. Multiple acute and mildly displaced right-sided rib fractures are redemonstrated. Mild right hemidiaphragmatic elevation. Subsegmental bibasilar opacities, slightly progressed of the left. Cardiomediastinal and hilar silhouettes are unchanged. Questioned trace pleural effusions. No overt pulmonary edema. Degenerative changes of the shoulders and spine. IMPRESSION: 1. Unchanged right apical pneumothorax with multiple acute and mildly displaced right-sided rib fractures redemonstrated. 2. Slightly progressed bibasilar atelectasis. 3. Suggestion of trace pleural effusions. The above report was generated using voice recognition software. It may contain grammatical, syntax or spelling errors. Electronically signed by: Giacomo Lowe M.D. 11/07/2018 7:27 AM Dictated: 11/07/18724 Transcribed: 11/07/18724 Medications Administered Current Inpatient Medications Acetaminophen (Tylenol) 650 mg PO Q6H [facility] Stop: 12/07/18 19:59 Al Hydrox/Mg Hydrox/Simethicone (Maalox) 15 ml PO Q4H PRN PRN Reason: Dyspepsia Stop: 12/06/18 23:20 Hydromorphone HCl (Dilaudid) 0.25 mg IV Q2H PRN PRN Reason: Pain Stop: 11/20/18 23:20 Last Admin: 11/07/18 11:41 Dose: 0.25 mg Documented by: Ketorolac Tromethamine (Toradol) 10 mg PO Q6H [facility] Stop: 11/12/18 13:59 Last Admin: 11/07/18 14:23 Dose: 10 mg Documented by: Lidocaine (Lidoderm 5%) [facility] [place] Stop: 12/07/18 12:59 Last Admin: 11/07/18 14:23 Dose: 1 patch Documented by: Magnesium Hydroxide (Milk Of Magnesia) 30 ml PO Q12H PRN PRN Reason: Constipation Stop: 12/06/18 23:20 Miscellaneous (Remove Lidoderm Patch) 1 ea N/A DAILY@2100 [facility] Stop: 12/07/18 20:59 Ondansetron HCl (Zofran) 4 mg IV Q4H PRN PRN Reason: Nausea Stop: 12/06/18 23:20 Last Admin: 11/07/18 08:00 Dose: 4 mg Documented by: Polyethylene Glycol (Miralax Powder Packet) 17 gm PO DAILY [facility] Stop: 12/07/18 13:29 Last Admin: 11/07/18 14:22 Dose: 17 gm Documented by: Tramadol HCl (Ultram) 50 mg PO Q4H PRN PRN Reason: Pain Stop: 12/07/18 13:09 Vitamin D (Vitamin D3) 2,000 units [facility] [place] Stop: 12/07/18 08:59 Last Admin: 11/07/18 11:41 Dose: 2,000 units Documented by: PG Care Time/CCT Total # of Minutes Spent Total Time Spent with Patient: Total time spent is greater than 50% in coordination of care (as documented) at patient's floor/unit and/or counseling patient: Resident Activity Tracking Resident Involvement: Resident Care Provided Care Provided: Adult Hospital Medicine (1) Multiple fractures of ribs of right side Encounter type: initial encounter Fracture type: closed Qualified Code(s): S22.41XA - Multiple fractures of ribs, right side, initial encounter for closed fracture (2) Fracture of transverse process of thoracic vertebra Encounter type: initial encounter Fracture type: closed Qualified Code(s): S22.009A - Unspecified fracture of unspecified thoracic vertebra, initial encounter for closed fracture (3) Pulmonary contusion Encounter type: initial encounter Laterality: right Qualified Code(s): S27.321A - Contusion of lung, unilateral, initial encounter
[2018-11-07] MEDS ORDERED: ACETAMINOPHEN 325 MG TAB PO SCH (14:00)
[2018-11-07] MEDS: POLYETHYLENE (MIRALAX) 17 GM PACK PO SCH (14:22)
[2018-11-07] MEDS: LIDOCAINE 5% 1 PATCH TD SCH (14:23)
[2018-11-07] MEDS: KETOROLAC TROMETHAMINE 10 MG TABLET PO SCH ×2 (14:23→20:24)
[2018-11-07] MEDS ORDERED: POTASSIUM CHLORIDE 20 MEQ TABCR PO STA (14:50)
[2018-11-07] MEDS: ACETAMINOPHEN 325 MG TAB PO SCH (20:09)
[2018-11-07 20:30] LABS: Appearance Urine Clear (Clear); Bilirubin Urine Negative (Negative); Blood Urine Negative (Negative); Color Urine Dark Yellow; Glucose Urine UA Negative (Negative); Ketones Urine Trace (Negative); Leukocyte Esterase Urine Negative (Negative); Nitrite Urine Negative (Negative); Protein Urine Negative (Negative); Specific Gravity Urine 1.023 (1.000-1.030); Urobilinogen Urine Negative (Negative); pH Urine 5.5 (4.5-7.5)
--- NOTE | 2018-11-07 23:56 | Consultation Report ---
DATE OF CONSULTATION: 11/07/2018 DATE OF CONSULTATION: 11/07/2018 REASON FOR CONSULTATION: Right pneumothorax status post trauma. 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 She suffered a fall and had some rib fractures and a CT scan showed a small pneumothorax. She slipped when getting out of an above ground pool. The patient was admitted overnight. She is more comfortable today, although she is receiving parenteral narcotics. She has multiple rib fractures on the right fourth through ninth ribs, but no flail chest. She also has fractured a couple of transverse processes of the thoracic vertebrae. I was asked to evaluate her from a thoracic surgery standpoint. PAST MEDICAL HISTORY: 1. Transient ischemic attack in the past. 2. Osteoarthritis. PAST SURGICAL HISTORY: 2, para 2. MEDICATIONS AT HOME: Mobic. ALLERGIES: No known drug allergies. SOCIAL HISTORY: The patient still works part-time at a hardware store. She has been working for many years here. She has never smoked cigarettes. She lives at home. She is independent of her activities of daily living. FAMILY MEDICAL HISTORY: The patient is 1 of 17 children. Her 2 children and her grandchildren are healthy. She had a brother from Hodgkin's lymphoma. Also had a sister who in her 80s from "old age." Her mother made it to her 80s. One of her sister a traumatic . REVIEW OF SYSTEMS: Prior to this injury which occurred on 11/06/2018, the patient had no visual or auditory complaints. She had no transient ischemic attacks lately. She has had no skin breakdown. She has had no palpitations or chest pain other than that described in history of present illness. She had no GI or symptoms. She has had no peripheral edema. She has had no chest pressure. PHYSICAL EXAMINATION: GENERAL: This is a youthful appearing 68-year-old who stands 5 feet 6 inches tall and weighs about 187 pounds. She is awake and alert. HEENT: Her extraocular movements are intact. Pupils are equal, round and reactive. Sclerae are anicteric. NECK: Supple. She has no neck vein distention or lymphadenopathy or carotid bruits. She has slightly decreased breath sounds on the right. She is tender along her right ribs laterally all the way from anterior to posterior. She has very little in the way of contusions and has no subcutaneous emphysema. HEART: There is regular rate and rhythm of her heart. ABDOMEN: Soft, nontender. EXTREMITIES: She has no peripheral edema. She has good peripheral pulses. She has no joint effusions. NEUROLOGIC: She is awake, alert and oriented with no focal deficits. DATA: I reviewed a chest x-ray today which shows that this pneumothorax is smaller. ASSESSMENT AND PLAN: Rib fractures with transverse processes of the thoracic vertebrae. She has no evidence of an ileus. She has no respiratory problems. I would keep her on a low dose supplemental O2 to help her pneumothorax resolve. Otherwise, I think she looks very good and when her pain can be controlled with p.o. opioid, she can be discharged.
[2018-11-08] MEDS: ACETAMINOPHEN 325 MG TAB PO SCH ×4 (01:49→20:35)
[2018-11-08] MEDS: KETOROLAC TROMETHAMINE 10 MG TABLET PO SCH ×4 (01:49→20:34)
[2018-11-08 05:59] LABS: BUN Creatinine Ratio 21.1 (10-20); Calcium 8.1 mg/dl (8.5-10.1); Creatinine Clr Calc Pharmacy 91.2 ml/min; Est GFR (African American) 105.3; Est GFR (Non-African American) 90.9; Potassium 4.3 mmol/L (3.5-5.1)
--- NOTE | 2018-11-08 07:21 | XRay Report ---
XR chest 1V portable CLINICAL HISTORY: pneumothorax dyspnea COMPARISON STUDY: 11/07/2018. FINDINGS: small residual right apical pneumothorax. Maximum pleural separation is 1.2 cm. This is imp roved from 1.8 cm. Multiple rib fractures are again noted. Atelectasis left base is similar. Some improved atelectasis r ight midlung. IMPRESSION: Mildly improved exam. Mild decrease in volume of a small right apical pneumothorax. Unch anging atelectasis left base. The above report was generated using voice recognition software. It may contain grammatical, syntax or spelling errors. Electronically signed by: Jaylon Johnston M.D. 11/08/2018 7:20 AM
[2018-11-08] MEDS: CHOLECALCIFEROL 1,000 UNITS TAB PO SCH (07:28)
[2018-11-08] MEDS: POLYETHYLENE (MIRALAX) 17 GM PACK PO SCH ×2 (07:28→20:36)
[2018-11-08] MEDS: LIDOCAINE 5% 1 PATCH TD SCH (07:29)
--- NOTE | 2018-11-08 08:49 | Progress Note ---
DATE: 11/08/2018 Ms. Cuevas was seen today. She is having considerable pain still which is not surprising given the injury that she sustained. I thought her x-ray looked quite good. Her pneumothorax is not going to have to require an intervention. She has excellent saturations, is on room air. My recommendation with this patient would be to ambulate her in the anderson at least every shift. Despite her pain, she is going to need to be up and moving to prevent a deep vein thrombosis with pulmonary emboli or pneumonia. In addition, I would give her supplemental oxygen while she is at rest in bed so it will help the pneumothorax resolve. I would check chest x-rays every few days on her.
[2018-11-08] MEDS ORDERED: HYDROmorphone INJ 0.5 MG/0.5 ML SYR IV STA (12:53)
[2018-11-08] MEDS ORDERED: HYDROmorphone HCL 0.5MG/ML 50 ML CASSETTE IV PRN (12:54)
[2018-11-08] MEDS: HYDROmorphone INJ 0.5 MG/0.5 ML SYR IV PRN (13:12)
--- NOTE | 2018-11-08 17:17 | Family Medicine Progress Note ---
Date of Service November 08, 2018 Assessment & Plan (1) Traumatic pneumohemothorax: Ms. Cuevas is an otherwise healthy 68 year-old woman who was admitted on 11/06/18 for a traumatic pneumothroax secondary to a mechanical fall. ED course: CT scan revealed fractures of the R 4th through 9th ribs, non- displaced transverse process fractures of T7-T10 vertebrae, and small right pneumothorax, max size 1cm. CXR showed small right apical pneumothorax with max pleural separation 1.7 cm. Patient admitted for serial monitoring and pain management. (1) Traumatic pneumothorax, size 17mm - non-progressive on serial CXR (11/08) -CT surgery consulted, appreciate recs -on exam patient was breathing on room air (satting well at 98%); ordered Oxygen 2L via NC (communicated with nursing that O2 via NC is for hastening resolution of pneumothorax) -patient reporting worsening pain today - ordered single dose of Dilaudid, 0.5mg, IV, once -order placed for AIR SURVEILLANCE OPERATOR in an effort to improve use of analgesia (Dilaudid, 0.15mg, every 20 minutes, prn); it was explained to patient that she is the only person who is authorized to press the AIR SURVEILLANCE OPERATOR button (she confirmed understanding) -pain control regimen: Lidocaine 5% patch qAM, Acetaminophen, 650mg, PO, scheduled q6h, Toradol, 10mg, PO, scheduled q6h - Tramadol discontinued -prn zofran for nausea -incentive spirometry to prevent complications like PNA - Miralax increased from once daily to BID as use of Dilaudid AIR SURVEILLANCE OPERATOR may worsen likelihood of ileus (2) Hyponatremia -Na level 133 on admission; 124 today (11/08) at 4:48am, 123 on repeat (8:57am) -will recheck at 5:00 pm (11/08) so result is back prior to night team shift (3) Acute SIADH --Na level 133 on admission; 124 today (11/08) at 4:48am, 123 on repeat (8:57am) -serum osms 259, urine osms 7 -several possible etiologies include medication imposed (on tramadol, opiates), pain afferent signal induction, or underlying lung pathology (traumatic pneumothorax) -placed on 1500 ml/day fluid restriction -tramadol d/c -perhaps with improved pain control on Dilaudid AIR SURVEILLANCE OPERATOR, afferent signals will reduce (4) Hypokalemia -K level improved to 4.3 (11/08) -continue to monitor with daily BMP (5) Vertebral Compression Fractures -noted as incidental finding on CT (multiple fractures felt to be old) -ordered Vitamin D, 2,000 IU, PO, daily -recommended discussing possible DEXA scan with PCP as an outpatient (6) Osteoarthritis -holding home meloxicam given elevated risk of bleeding secondary to sustained chest trauma FEN/GI: heart healthy diet; water restriction to 1500ml/day PT/OT: ordered DVT ppx: Bilateral SCDs CODE STATUS: FULL DISPO: Med/Surg (2) Pulmonary contusion: (3) Multiple fractures of ribs of right side: (4) Fracture of transverse process of thoracic vertebra: (5) Fall from slip, trip, or stumble: (6) Hyponatremia: (7) SIADH (syndrome of inappropriate ADH production): Supervising Physician Co-Signing Physician Notes I personally examined the patient and verified all chavarria points of history and exam, discussed case, and agree with decision making with Dr Abarca. pain still uncontrolled. also hesitant to bother anyone to ask for prns. mentating well (sister present who agrees mentation is normal) vitals noted nad breathing unlabored no pallor or icterus. fall (mechanical) with multiple rib fractures and transverse process fractures - continue tylenol and toradol, continue lidocaine patch, escalate to AIR SURVEILLANCE OPERATOR for better / more even pain control. acute SiADH - sodium dropped precipitiously, urine/serum osms c/w SiADH. most likely multifactorial between pneumothorax, pain, possibly effects of meds (tramadol >> toradol > other) -pneumothorax will resolve over time -affect better pain control w AIR SURVEILLANCE OPERATOR -stop tramadol, follow Na, low threshold to stop toradol although less likely to be culprit -fluid restrict -follow Na, follow mentation -if drops further then may need to consider 3% saline vs tolvaptan vs other (await repeat Na) (late addendum - repeat fortunately 127) old-appearing thoracic compression fractures -presumed osteoporosis -continue vitamin D for now -outpt w/u for bone health add pharmacologic DVT proph Subjective Patient reports feeling better than yesterday - she slept some overnight. Her pain is 8/10 in severity, up from 7/10 yesterday, although she has not requested either Tramadol or Dilaudid, both of which are ordred prn. Patient admits to being "not the kind to ask for pain medication." She has no further complaints other than R sided pain localized to site of injury and nausea. She has not had a BM since entering the hospital, but has passed gas this AM. She is using her incentive spirometer Review of Systems Review of Systems: Constitutional: No fevers, chills, night sweats Cardiovascular: No chest pain, palpitations or pedal edema Respiratory: No SOB, cough, wheezing; Patient reports pain on deep inspiration Gastrointestinal: nausea but no vomiting, no diarrhea, constipation, or abdominal pain Physical Exam Constitutional: well developed, well nourished and cooperative Eyes: + anicteric sclerae Respiratory: normal respiratory effort; does not use accessory muscles, no cough and no nasal flaring Auscultation: + bronchovesicular breath sounds (appreciated throughout); no crackles, no wheezes and no pleural rub Cardiovascular: RRR, no murmur, no edema Heart Sounds: normal S1 and normal S2; no click, no gallop, no murmur and no cardiac rub Gastrointestinal (Abdomen): normal bowel sounds, soft, nontender, no hepatosplenomegaly Inspection/Auscultation: abdomen not distended Percussion/Palpation: abdomen soft Neurologic: awake Psychiatric: Orientation: alert and oriented x 3 Results & Data Vital Signs (Past 12 Hours) Vital Signs Temp Pulse Pulse Resp BP BP Pulse Ox 11/08/18 15:31 36.7 C 73 20 153/79 H 98 11/08/18 07:26 36.7 C 74 18 139/83 97 Laboratory Results 11/08/18 11/08/18 11/08/18 Range/Units 11:40 09:38 08:57 Sodium 123 L (136-145) mmol/L Potassium (3.5-5.1) mmol/L Chloride (98-107) mmol/L Carbon Dioxide (21-32) mmol/L Anion Gap (3-11) BUN (7-18) mg/dl Creatinine (0.6-1.2) mg/dl Est Cr Clr Drug Dosing ml/min Est GFR ( Amer) Est GFR (Non-Af Amer) BUN/Creatinine Ratio (10-20) Glucose (70-99) mg/dl Osmolality 259 L (280-300) mOsm/kg Calcium (8.5-10.1) mg/dl Urine Color Urine Appearance (Clear) Urine pH (4.5-7.5) Ur Specific [place] (1.000-1.030) Urine Protein (Negative) Urine Glucose (UA) (Negative) Urine Ketones (Negative) Urine Blood (Negative) Urine Nitrite (Negative) Urine Bilirubin (Negative) Urine Urobilinogen (Negative) Ur Leukocyte Esterase (Negative) Urine Osmolality 738 (500-800) mOsm/kg 11/08/18 11/07/18 Range/Units 04:48 20:00 Sodium 124 L D (136-145) mmol/L Potassium 4.3 D (3.5-5.1) mmol/L Chloride 91 L (98-107) mmol/L Carbon Dioxide 28 (21-32) mmol/L Anion Gap 5.0 (3-11) BUN 13 (7-18) mg/dl Creatinine 0.63 (0.6-1.2) mg/dl Est Cr Clr Drug Dosing 91.2 ml/min Est GFR ( Amer) 105.3 Est GFR (Non-Af Amer) 90.9 BUN/Creatinine Ratio 21.1 H (10-20) Glucose 90 (70-99) mg/dl Osmolality (280-300) mOsm/kg Calcium 8.1 L (8.5-10.1) mg/dl Urine Color Dark Yellow Urine Appearance Clear (Clear) Urine pH 5.5 (4.5-7.5) Ur Specific [place] 1.023 (1.000-1.030) Urine Protein Negative (Negative) Urine Glucose (UA) Negative (Negative) Urine Ketones Trace H (Negative) Urine Blood Negative (Negative) Urine Nitrite Negative (Negative) Urine Bilirubin Negative (Negative) Urine Urobilinogen Negative (Negative) Ur Leukocyte Esterase Negative (Negative) Urine Osmolality (500-800) mOsm/kg Diagnostic Findings XR chest 1V portable CLINICAL HISTORY: pneumothorax dyspnea COMPARISON STUDY: 11/07/2018. FINDINGS: small residual right apical pneumothorax. Maximum pleural separation is 1.2 cm. This is improved from 1.8 cm. Multiple rib fractures are again noted. Atelectasis left base is similar. Some improved atelectasis right midlung. IMPRESSION: Mildly improved exam. Mild decrease in volume of a small right apical pneumothorax. Unchanging atelectasis left base. The above report was generated using voice recognition software. It may contain grammatical, syntax or spelling errors. Electronically signed by: Jaylon Johnston M.D. 11/08/2018 7:20 AM Dictated: 11/08/18718 Transcribed: 11/08/18718 Medications Administered Current Inpatient Medications Acetaminophen (Tylenol) 650 mg PO Q6H [facility] Stop: 12/07/18 19:59 Last Admin: 11/08/18 13:33 Dose: 650 mg Documented by: Al Hydrox/Mg Hydrox/Simethicone (Maalox) 15 ml PO Q4H PRN PRN Reason: Dyspepsia Stop: 12/06/18 23:20 Hydromorphone HCl (Dilaudid Intellectual Property Paralegal) 25 mg IV PRN PRN; Protocol PRN Reason: Pain Stop: 11/22/18 12:53 Last Admin: 11/08/18 14:50 Dose: 25 mg Documented by: Ketorolac Tromethamine (Toradol) 10 mg PO Q6H [facility] Stop: 11/12/18 13:59 Last Admin: 11/08/18 13:33 Dose: 10 mg Documented by: Lidocaine (Lidoderm 5%) 1 patch TD QAM [facility] Stop: 12/07/18 12:59 Last Admin: 11/08/18 07:29 Dose: 1 patch Documented by: Magnesium Hydroxide (Milk Of Magnesia) 30 ml PO Q12H PRN PRN Reason: Constipation Stop: 12/06/18 23:20 Miscellaneous (Remove Lidoderm Patch) 1 ea N/A DAILY@2100 [facility] Stop: 12/07/18 20:59 Last Admin: 11/07/18 20:15 Dose: 1 ea Documented by: Ondansetron HCl (Zofran) 4 mg IV Q4H PRN PRN Reason: Nausea Stop: 12/06/18 23:20 Last Admin: 11/07/18 08:00 Dose: 4 mg Documented by: Polyethylene Glycol (Miralax Powder Packet) 17 gm PO DAILY [facility] Stop: 12/07/18 13:29 Last Admin: 11/08/18 07:28 Dose: 17 gm Documented by: Vitamin D (Vitamin D3) 2,000 units PO QAM [facility] Stop: 12/07/18 08:59 Last Admin: 11/08/18 07:28 Dose: 2,000 units Documented by: PG Care Time/CCT Total # of Minutes Spent Total Time Spent with Patient: Total time spent is greater than 50% in coordination of care (as documented) at patient's floor/unit and/or counseling patient: Resident Activity Tracking Resident Involvement: Resident Care Provided Care Provided: Adult Hospital Medicine (1) Multiple fractures of ribs of right side Encounter type: initial encounter Fracture type: closed Qualified Code(s): S22.41XA - Multiple fractures of ribs, right side, initial encounter for closed fracture (2) Fracture of transverse process of thoracic vertebra Encounter type: initial encounter Fracture type: closed Qualified Code(s): S22.009A - Unspecified fracture of unspecified thoracic vertebra, initial encounter for closed fracture (3) Pulmonary contusion Encounter type: initial encounter Laterality: right Qualified Code(s): S27.321A - Contusion of lung, unilateral, initial encounter
[2018-11-08 18:05] LABS: BUN Creatinine Ratio 16.5 (10-20); Calcium 8.4 mg/dl (8.5-10.1); Creatinine Clr Calc Pharmacy 89.7 ml/min; Est GFR (African American) 104.8; Est GFR (Non-African American) 90.4; Potassium 4.2 mmol/L (3.5-5.1)
[2018-11-08 19:56] LABS: Prothrombin Time 10.7 Seconds (9.0-12.0)
[2018-11-08] MEDS: ENOXAPARIN INJ 40 MG/0.4 ML SYR SQ SCH (20:34)
[2018-11-09] MEDS: ACETAMINOPHEN 325 MG TAB PO SCH ×4 (03:32→19:46)
[2018-11-09] MEDS: KETOROLAC TROMETHAMINE 10 MG TABLET PO SCH ×4 (03:32→19:46)
[2018-11-09 06:32] LABS: BUN Creatinine Ratio 17.3 (10-20); Calcium 7.9 mg/dl (8.5-10.1); Creatinine Clr Calc Pharmacy 91.2 ml/min; Est GFR (African American) 105.3; Est GFR (Non-African American) 90.9; Potassium 4.1 mmol/L (3.5-5.1)
--- NOTE | 2018-11-09 06:58 | Family Medicine Progress Note ---
Date of Service November 09, 2018 Assessment & Plan (1) Traumatic pneumohemothorax: Ms. Cuevas is an otherwise healthy 68 year-old woman who was admitted on 11/06/18 for a traumatic pneumothroax secondary to a mechanical fall. ED course: CT scan revealed fractures of the R 4th through 9th ribs, non- displaced transverse process fractures of T7-T10 vertebrae, and small right pneumothorax, max size 1cm. CXR showed small right apical pneumothorax with max pleural separation 1.7 cm. Patient admitted for serial monitoring and pain management. (1) Traumatic pneumothorax, size 17mm - improving on serial CXR (11/08) -CT surgery consulted, appreciate recs -continue oxygen 2L via NC -patient reporting improvement in pain with Dilaudid HEAD INSPECTOR AND CENTER MARKER; we will continue the HEAD INSPECTOR AND CENTER MARKER, but in an effort to transition to pain control with oral agents, we will add Oxycodone, 5mg, q4h, prn. Patient was instructed to request oxycodone the next time she feels pain, and allow 30 minutes for agent to take effect. Only if she needs additional analgesia should she press the HEAD INSPECTOR AND CENTER MARKER. (patient verbally confirmed understanding of this plan) -additional pain control regimen: Lidocaine 5% patch qAM, Acetaminophen, 650mg, PO, scheduled q6h, Toradol, 10mg, PO, scheduled q6h -prn zofran for nausea -incentive spirometry to prevent complications like PNA - Miralax increased from BID to TID as use of Dilaudid HEAD INSPECTOR AND CENTER MARKER may worsen likelihood of ileus, patient has not yet had a BM (2) Hyponatremia -Na level 127 today, up from 123 yesterday (11/08) -continue to monitor with daily BMPs -patient continues to mentate normally (3) Acute SIADH --Na level 127 today, up from 123 yesterday (11/08) -serum osms 259, urine osms 7 (11/08) -several possible etiologies include medication imposed (on tramadol, opiates), pain afferent signal induction, or underlying lung pathology (traumatic pneumothorax) -placed on 1500 ml/day fluid restriction -tramadol d/c -perhaps with improved pain control on Dilaudid HEAD INSPECTOR AND CENTER MARKER, afferent signals will reduce (4) Hypokalemia -K level at 4.1 (11/09); appears to have normalized -continue to monitor with daily BMP (5) Calf tenderness -given bilateral distribution, unlikely to represent DVT -patient was started on Lovenox yesterday for DVT prophylaxis (11/08) -Electrolytes WNL -most likely etiology is positional (patient lying in hospital bed for many hours over the past 4 days) (6) Vertebral Compression Fractures -noted as incidental finding on CT (multiple fractures felt to be old) -ordered Vitamin D, 2,000 IU, PO, daily -recommended discussing possible DEXA scan with PCP as an outpatient (7) Osteoarthritis -holding home meloxicam given elevated risk of bleeding secondary to sustained chest trauma FEN/GI: heart healthy diet; water restriction to 1500ml/day PT/OT: ordered DVT ppx: Lovenox, 40mg, SQ, qAM CODE STATUS: FULL DISPO: Med/Surg (2) Pulmonary contusion: (3) Multiple fractures of ribs of right side: (4) Fracture of transverse process of thoracic vertebra: (5) Fall from slip, trip, or stumble: (6) Hyponatremia: (7) SIADH (syndrome of inappropriate ADH production): (8) Calf tenderness: Supervising Physician Co-Signing Physician Notes I personally examined the patient and verified all chavarria points of history and exam, discussed case, and agree with decision making with Dr Abarca. Pain control much better on HEAD INSPECTOR AND CENTER MARKER. Walking in the halls better. Overall feeling improved. Still does have pain. vitals noted nad breathing unlabored no pallor or icterus. fall (mechanical) with multiple rib fractures and transverse process fractures - continue tylenol and toradol, continue lidocaine patch, HEAD INSPECTOR AND CENTER MARKER helping significantly. To work towards transition to home, will give oral oxycodone as needed (instructed patient to hold off on HEAD INSPECTOR AND CENTER MARKER for at least 30 to 45 minutes after taking so that she can look for efficacy) and then once she is doing better on the oral oxycodone without needing IV, then we can work towards home. acute SiADH - sodium dropped precipitiously, urine/serum osms c/w SiADH. most likely multifactorial between pneumothorax, pain, possibly effects of meds (tramadol >> toradol > other) -pneumothorax resolving -Pain control has improved -stopped tramadol, low threshold to stop toradol although less likely to be culprit and sodium improved -fluid restrict for now -follow Na, follow mentation (doing well) -if drops further then may need to consider 3% saline vs tolvaptan vs otherbut this seems unlikely to be necessary now that she is improving old-appearing thoracic compression fractures -presumed osteoporosisstable for outpatient evaluation and management -continue vitamin D for now -outpt w/u for bone health DVT prophylaxisLovenox Subjective No events overnight. Patient reports marked improvement in her pain level. Her pain has mostly been a 5/10 in severity, down from 8/10 yesterday. She says she has pressed the Dilaudid HEAD INSPECTOR AND CENTER MARKER button sparingly. She notes the new complaint of bilateral calf tenderness, which she noticed last night. She has not had a BM since entering the hospital, but continues to pass gas. She is using her incentive spirometer Review of Systems Review of Systems: Constitutional: No fevers, chills, night sweats Cardiovascular: No chest pain, palpitations or pedal edema Respiratory: No SOB, cough, wheezing; Patient reports pain on deep inspiration Gastrointestinal: no nausea/vomiting, no diarrhea, constipation, or abdominal pain Extremities: bilateral calf pain Physical Exam Constitutional: well developed, well nourished and cooperative bright pink hair; mentating normally Eyes: + anicteric sclerae Respiratory: normal respiratory effort; does not use accessory muscles, no cough and no nasal flaring Auscultation: no crackles, no wheezes and no pleural rub seems to be moving air much better than on exam yesterday Cardiovascular: RRR, no murmur, no edema Heart Sounds: normal S1 and normal S2; no click, no gallop, no murmur and no cardiac rub Gastrointestinal (Abdomen): normal bowel sounds, soft, nontender, no hepatosplenomegaly Inspection/Auscultation: abdomen not distended Percussion/Palpation: abdomen soft Musculoskeletal: bilateral calf tenderness with compression; no swelling or erythema; negative Neetu's sign Neurologic: awake Psychiatric: Orientation: alert and oriented x 3 Results & Data Vital Signs (Past 12 Hours) Vital Signs Temp Pulse Resp BP Pulse Ox 11/09/18 00:23 37.0 C 84 18 126/79 92 Laboratory Results 11/09/18 11/08/18 11/08/18 Range/Units 05:24 18:57 17:34 PT 10.7 (9.0-12.0) Seconds INR 1.0 (0.9-1.1) Sodium 127 L 127 L (136-145) mmol/L Potassium 4.1 4.2 (3.5-5.1) mmol/L Chloride 93 L 91 L (98-107) mmol/L Carbon Dioxide 26 29 (21-32) mmol/L Anion Gap 7.0 7.0 (3-11) BUN 11 11 (7-18) mg/dl Creatinine 0.63 0.64 (0.6-1.2) mg/dl Est Cr Clr Drug Dosing 91.2 89.7 ml/min Est GFR ( Amer) 105.3 104.8 Est GFR (Non-Af Amer) 90.9 90.4 BUN/Creatinine Ratio 17.3 16.5 (10-20) Glucose 93 91 (70-99) mg/dl Calcium 7.9 L 8.4 L (8.5-10.1) mg/dl Medications Administered Current Inpatient Medications Acetaminophen (Tylenol) 650 mg PO Q6H [facility] Stop: 12/07/18 19:59 Last Admin: 11/09/18 13:24 Dose: 650 mg Documented by: Al Hydrox/Mg Hydrox/Simethicone (Maalox) 15 ml PO Q4H PRN PRN Reason: Dyspepsia Stop: 12/06/18 23:20 Enoxaparin S[facility]) [facility] Stop: 12/08/18 19:59 Last Admin: 11/09/18 08:20 Dose: 40 mg Documented by: Hydromorphone HCl (Dilaudid Transport Aide) 25 mg IV PRN PRN; Protocol PRN Reason: Pain Stop: 11/22/18 12:53 Last Admin: 11/08/18 14:50 Dose: 25 mg Documented by: Ketorolac Tromethamine (Toradol) 10 mg PO Q6H [facility] Stop: 11/12/18 13:59 Last Admin: 11/09/18 14:06 Dose: 10 mg Documented by: Lidocaine (Lidoderm 5%) 1 patch TD QAM [facility] Stop: 12/07/18 12:59 Last Admin: 11/09/18 07:43 Dose: 1 patch Documented by: Magnesium Hydroxide (Milk Of Magnesia) 30 ml PO Q12H PRN PRN Reason: Constipation Stop: 12/06/18 23:20 Miscellaneous (Remove Lidoderm Patch) 1 ea N/A DAILY@2100 [facility] Stop: 12/07/18 20:59 Last Admin: 11/08/18 20:36 Dose: 1 ea Documented by: Ondansetron HCl (Zofran) 4 mg IV Q4H PRN PRN Reason: Nausea Stop: 12/06/18 23:20 Last Admin: 11/07/18 08:00 Dose: 4 mg Documented by: Oxycodone HCl (Roxicodone Immediate Rel) 5 mg PO Q4 PRN PRN Reason: Pain Stop: 11/23/18 10:14 Polyethylene Glycol (Miralax Powder Packet) 17 gm PO TID [facility] Stop: 12/09/18 13:59 Last Admin: 11/09/18 13:24 Dose: 17 gm Documented by: Vitamin D (Vitamin D3) 2,000 units PO QAM [facility] Stop: 12/07/18 08:59 Last Admin: 11/09/18 07:44 Dose: 2,000 units Documented by: PG Care Time/CCT Total # of Minutes Spent Total Time Spent with Patient: Total time spent is greater than 50% in coordination of care (as documented) at patient's floor/unit and/or counseling patient: Resident Activity Tracking Resident Involvement: Resident Care Provided Care Provided: Adult Hospital Medicine (1) Multiple fractures of ribs of right side Encounter type: initial encounter Fracture type: closed Qualified Code(s): S22.41XA - Multiple fractures of ribs, right side, initial encounter for closed fracture (2) Fracture of transverse process of thoracic vertebra Encounter type: initial encounter Fracture type: closed Qualified Code(s): S22.009A - Unspecified fracture of unspecified thoracic vertebra, initial encounter for closed fracture (3) Pulmonary contusion Encounter type: initial encounter Laterality: right Qualified Code(s): S27.321A - Contusion of lung, unilateral, initial encounter
[2018-11-09] MEDS: LIDOCAINE 5% 1 PATCH TD SCH (07:43)
[2018-11-09] MEDS: CHOLECALCIFEROL 1,000 UNITS TAB PO SCH (07:44)
[2018-11-09] MEDS: POLYETHYLENE (MIRALAX) 17 GM PACK PO SCH ×3 (07:44→19:46)
[2018-11-09] MEDS: ENOXAPARIN INJ 40 MG/0.4 ML SYR SQ SCH (08:20)
--- NOTE | 2018-11-09 11:35 | Progress Note ---
DATE: 11/09/2018 Annabelle Cuevas was seen today. We had been asked to see her for a fracture of her ribs and her x-ray yesterday I thought looked very good. I see a very small pneumothorax with no effusion and I think something could be easily followed. I would check a chest x-ray tomorrow. She is still requiring parenteral narcotics. Another surprising thing is that her development as per patient, it is the fact that she has hyponatremia, which she actually had upon presentation with a sodium of 133, but this went down as low as 123 two days after admission. It is back up to 127, but I find that odd. I do not believe this has anything to do with her rib fractures. We will be glad to follow up with Ms. Cuevas, but I believe that if her x-ray looks good tomorrow, I would probably not need to follow her in the office. GISSELL
[2018-11-10] MEDS: KETOROLAC TROMETHAMINE 10 MG TABLET PO SCH ×4 (01:26→19:19)
[2018-11-10] MEDS: ACETAMINOPHEN 325 MG TAB PO SCH ×4 (01:26→19:20)
[2018-11-10] MEDS: ENOXAPARIN INJ 40 MG/0.4 ML SYR SQ SCH (07:40)
[2018-11-10] MEDS: POLYETHYLENE (MIRALAX) 17 GM PACK PO SCH ×3 (07:40→20:21)
[2018-11-10] MEDS: LIDOCAINE 5% 1 PATCH TD SCH (07:40)
[2018-11-10] MEDS: CHOLECALCIFEROL 1,000 UNITS TAB PO SCH (07:40)
--- NOTE | 2018-11-10 08:21 | XRay Report ---
XR chest 1V portable HISTORY: Follow-up Pneumothorax COMPARISON: Chest 11/08/2018. FINDINGS: Small right apical pneumothorax has slightly decreased in size. This demonstrates a maximal pleural gap of 7 mm. Right-sided rib fractures and a trace right pleural effusion persist. Bibasilar linear densities favor subsegmental atelectasis. The heart is normal in size. IMPRESSION: Slight decrease in size in the small right pneumothorax. Trace right pleural effusion persists. Electronically signed by: Vin Arteaga M.D. 11/10/2018 8:20 AM
[2018-11-10] MEDS: OXYCODONE HCL IR 5 MG TAB (IMMEDIATE RELEASE) PO PRN ×3 (08:40→19:58)
[2018-11-10 08:47] LABS: BUN Creatinine Ratio 10.8 (10-20); Calcium 8.7 mg/dl (8.5-10.1); Creatinine Clr Calc Pharmacy 98.2 ml/min; Est GFR (African American) 107.6; Est GFR (Non-African American) 92.9; Potassium 4.3 mmol/L (3.5-5.1)
[2018-11-10] MEDS: ONDANSETRON INJ 2 MG/ML 2 ML VIAL IV PRN (09:26)
--- NOTE | 2018-11-10 09:27 | Family Medicine Progress Note ---
Date of Service November 10, 2018 Assessment & Plan (1) Traumatic pneumohemothorax: Ms. Cuevas is an otherwise healthy 68 year-old woman who was admitted on 11/06/18 for a traumatic pneumothroax secondary to a mechanical fall. ED course: CT scan revealed fractures of the R 4th through 9th ribs, non- displaced transverse process fractures of T7-T10 vertebrae, and small right pneumothorax, max size 1cm. CXR showed small right apical pneumothorax with max pleural separation 1.7 cm. Patient admitted for serial monitoring and pain management. (1) Traumatic pneumothorax- improving on serial CXR (11/10) -CT surgery consulted, appreciate recs -continue oxygen 2L via [place] to hasten resolution -continue Dilaudid SUPERVISING ARCHITECT; trial oral Oxycodone, 5mg, PO as tolerable in an effort to transition to a pain control regimen suitable for discharge -additional pain control regimen: Lidocaine 5% patch qAM, Acetaminophen, 650mg, PO, scheduled q6h, Toradol, 10mg, PO, scheduled q6h -prn zofran for nausea -incentive spirometry to prevent complications like PNA - continue Miralax TID (2) Hyponatremia -resolving -Na level 131 today (11/10) up from 127 -continue to monitor with daily BMPs -patient continues to mentate normally (3) Acute SIADH -resolving --Na level 131 today (11/10), up from 127 yesterday, as low as 123 (11/08) -serum osms 259, urine osms 7 (11/08) -several possible etiologies include medication imposed (on tramadol, opiates), pain afferent signal induction, or underlying lung pathology (traumatic pneumothorax) -given improvement in Na level, we will remove fluid restriction today -tramadol d/c -perhaps with improved pain control on Dilaudid SUPERVISING ARCHITECT, afferent signals will reduc e (4) Vertebral Compression Fractures -noted as incidental finding on CT (multiple fractures felt to be old) -ordered Vitamin D, 2,000 IU, PO, daily -recommended discussing possible DEXA scan with PCP as an outpatient (5) Osteoarthritis -holding home meloxicam given elevated risk of bleeding secondary to sustained chest trauma FEN/GI: heart healthy diet PT/OT: ordered DVT ppx: Lovenox, 40mg, SQ, qAM CODE STATUS: FULL DISPO: Med/Surg (2) Pulmonary contusion: -secondary to multiple rid fractures and transverse process fractures (3) Multiple fractures of ribs of right side: (4) Fracture of transverse process of thoracic vertebra: (5) Fall from slip, trip, or stumble: (6) Hyponatremia: (7) SIADH (syndrome of inappropriate ADH production): (8) Calf tenderness: Supervising Physician Co-Signing Physician Notes I personally examined the patient and verified all chavarria points of history and exam, discussed case, and agree with decision making with Dr Abarca. Pain control better. Tried oral oxycodone this morning, did not improve pain enough and she did need SUPERVISING ARCHITECT afterwards, also felt nauseated afterwards. Since then she has had a few bowel movements. vitals noted nad breathing unlabored no pallor or icterus. No focal neuro deficits. Mental status intact. fall (mechanical) with multiple rib fractures and transverse process fractures - continue tylenol and toradol, continue lidocaine patch, SUPERVISING ARCHITECT helping significantly. Working to transition pain meds to what would be utilizable at home, continue oxycodone through today. If it is continuing to not help enough, and or if it is continuing to cause nausea, then adjust oral pain meds tomorrow. acute SiADH - sodium dropped precipitiously, urine/serum osms c/w SiADH. most likely multifactorial between pneumothorax, pain, possibly effects of meds (tramadol >> toradol > other) -pneumothorax resolving -Pain control has improved -stopped tramadol, low threshold to stop toradol although less likely to be culprit and sodium improved -Okay to stop fluid restriction -Sodium improving old-appearing thoracic compression fractures -presumed osteoporosis -continue vitamin D for now -outpt w/u for bone health DVT prophylaxisLovenox Subjective No events overnight. Pain level was too high yesterday to trial the oral oxycodone - did so this morning, but after 40 minutes pain control was not sufficient so she had to push the SUPERVISING ARCHITECT. She also noticed she felt nauseated after taking the oxycodone. She reports the bilateral calf tenderness has resolved. She has had two BMs. She is using her incentive spirometer. Sister and friend present at bedside. Review of Systems Review of Systems: Constitutional: No fevers, chills, night sweats Cardiovascular: No chest pain, palpitations or pedal edema Respiratory: No SOB, cough, wheezing; Patient reports pain on deep inspiration Gastrointestinal: no nausea/vomiting, no diarrhea, constipation, or abdominal pain MSK: pain over right sided thoracic region (congruent with site of injury) Extremities: denies calf pain Physical Exam Constitutional: well developed, well nourished and cooperative bright pink hair Eyes: + anicteric sclerae Respiratory: normal respiratory effort; does not use accessory muscles, no cough and no nasal flaring Auscultation: no crackles, no wheezes and no pleural rub Cardiovascular: RRR, no murmur, no edema Heart Sounds: normal S1 and normal S2; no click, no gallop, no murmur and no cardiac rub Extremities: no pedal edema Gastrointestinal (Abdomen): normal bowel sounds, soft, nontender, no hepat osplenomegaly Inspection/Auscultation: abdomen not distended Percussion/Palpation: abdomen soft; abdomen nontender Neurologic: awake Psychiatric: Orientation: alert and oriented x 3 Results & Data Vital Signs (Past 12 Hours) Vital Signs Temp Pulse Resp BP Pulse Ox 11/10/18 07:47 36.6 C 79 20 135/80 100 11/10/18 03:12 36.5 C 72 14 135/76 95 11/09/18 23:11 36.6 C 77 16 136/77 98 Laboratory Results 11/10/18 Range/Units 07:54 Sodium 131 L (136-145) mmol/L Potassium 4.3 (3.5-5.1) mmol/L Chloride 97 L (98-107) mmol/L Carbon Dioxide 28 (21-32) mmol/L Anion Gap 6.0 (3-11) BUN 6 L D (7-18) mg/dl Creatinine 0.59 L (0.6-1.2) mg/dl Est Cr Clr Drug Dosing 98.2 ml/min Est GFR ( Amer) 107.6 Est GFR (Non-Af Amer) 92.9 BUN/Creatinine Ratio 10.8 (10-20) Glucose 105 H (70-99) mg/dl Calcium 8.7 (8.5-10.1) mg/dl Diagnostic Findings XR chest 1V portable HISTORY: Follow-up Pneumothorax COMPARISON: Chest 11/08/2018. FINDINGS: Small right apical pneumothorax has slightly decreased in size. This demonstrates a maximal pleural gap of 7 mm. Right-sided rib fractures and a trace right pleural effusion persist. Bibasilar linear densities favor subsegmental atelectasis. The heart is normal in size. IMPRESSION: Slight decrease in size in the small right pneumothorax. Trace right pleural effusion persists. Electronically signed by: Vin Arteaga M.D. 11/10/2018 8:20 AM Dictated: 11/10/18818 Transcribed: 11/10/18818 Medications Administered Current Inpatient Medications Acetaminophen (Tylenol) 650 mg PO Q6H [facility] Stop: 12/07/18 19:59 Last Admin: 11/10/18 07:39 Dose: 650 mg Documented by: Al Hydrox/Mg Hydrox/Simethicone (Maalox) 15 ml PO Q4H PRN PRN Reason: Dyspepsia Stop: 12/06/18 23:20 Enoxaparin Sodium (Lovenox) 40 mg SQ [facility] Stop: 12/08/18 19:59 Last Admin: 11/10/18 07:40 Dose: 40 mg Documented by: Hydromorphone HCl (Dilaudid Hydro Mechanic) 25 mg IV PRN PRN; Protocol PRN Reason: Pain Stop: 11/22/18 12:53 Last Admin: 11/08/18 14:50 Dose: 25 mg Documented by: Ketorolac Tromethamine (Toradol) 10 mg PO Q6H [facility] Stop: 11/12/18 13:59 Last Admin: 11/10/18 07:39 Dose: 10 mg Documented by: Lidocaine (Lidoderm 5%) 1 patch TD QAM [facility] Stop: 12/07/18 12:59 Last Admin: 11/10/18 07:40 Dose: 1 patch Documented by: Magnesium Hydroxide (Milk Of Magnesia) 30 ml PO Q12H PRN PRN Reason: Constipation Stop: 12/06/18 23:20 Miscellaneous (Remove Lidoderm Patch) 1 ea N/A DAILY@2100 [facility] Stop: 12/07/18 20:59 Last Admin: 11/09/18 20:48 Dose: 1 ea Documented by: Ondansetron HCl (Zofran) 4 mg IV Q4H PRN PRN Reason: Nausea Stop: 12/06/18 23:20 Last Admin: 11/10/18 09:26 Dose: 4 mg Documented by: Oxycodone HCl (Roxicodone Immediate Rel) 5 mg PO Q4 PRN PRN Reason: Pain Stop: 11/23/18 10:14 Last Admin: 11/10/18 08:40 Dose: 5 mg Documented by: Polyethylene Glycol (Miralax Powder Packet) 17 gm PO TID [facility] Stop: 12/09/18 13:59 Last Admin: 11/10/18 07:40 Dose: 17 gm Documented by: Vitamin D (Vitamin D3) 2,000 units PO QAM [facility] Stop: 12/07/18 08:59 Last Admin: 11/10/18 07:40 Dose: 2,000 units Documented by: PG Care Time/CCT Total # of Minutes Spent Total Time Spent with Patient: Total time spent is greater than 50% in coordination of care (as documented) at patient's floor/unit and/or counseling patient: Resident Activity Tracking Resident Involvement: Resident Care Provided Care Provided: Adult Hospital Medicine (1) Multiple fractures of ribs of right side Encounter type: initial encounter Fracture type: closed Qualified Code(s): S22.41XA - Multiple fractures of ribs, right side, initial encounter for closed fracture (2) Fracture of transverse process of thoracic vertebra Encounter type: initial encounter Fracture type: closed Qualified Code(s): S22.009A - Unspecified fracture of unspecified thoracic vertebra, initial encounter for closed fracture (3) Pulmonary contusion Encounter type: initial encounter Laterality: right Qualified Code(s): S27.321A - Contusion of lung, unilateral, initial encounter
[2018-11-11] MEDS: ACETAMINOPHEN 325 MG TAB PO SCH ×4 (01:54→20:31)
[2018-11-11] MEDS: KETOROLAC TROMETHAMINE 10 MG TABLET PO SCH ×4 (01:54→20:30)
[2018-11-11 06:59] LABS: BUN Creatinine Ratio 16.4 (10-20); Calcium 8.4 mg/dl (8.5-10.1); Creatinine Clr Calc Pharmacy 101.7 ml/min; Est GFR (African American) 108.9; Est GFR (Non-African American) 93.9; Potassium 4.5 mmol/L (3.5-5.1)
[2018-11-11] MEDS: CHOLECALCIFEROL 1,000 UNITS TAB PO SCH (07:37)
[2018-11-11] MEDS: LIDOCAINE 5% 1 PATCH TD SCH (07:37)
[2018-11-11] MEDS: POLYETHYLENE (MIRALAX) 17 GM PACK PO SCH ×3 (07:37→20:32)
[2018-11-11] MEDS: ENOXAPARIN INJ 40 MG/0.4 ML SYR SQ SCH (07:38)
[2018-11-11] MEDS: OXYCODONE HCL IR 5 MG TAB (IMMEDIATE RELEASE) PO PRN ×4 (09:03→21:32)
--- NOTE | 2018-11-11 13:23 | Surgery Progress Note ---
Date of Service November 11, 2018 Assessment & Plan (1) Traumatic pneumohemothorax: -CXR yesterday showed improvement of previously noted pneumothorax and no significant pleural effusions -encourage use of IS -encourage ambulation Subjective Pt. notes pain control has improved. No SOB reported. Physical Exam Respiratory: no respiratory distress, no labored breathing and does not use accessory muscles slight decrease of BS at bases Results & Data Vital Signs (Past 12 Hours) Vital Signs Temp Pulse Resp BP Pulse Ox 11/11/18 11:23 36.7 C 73 18 143/83 H 95 11/11/18 07:30 36.6 C 75 17 145/74 H 94 11/11/18 04:11 36.9 C 78 16 146/85 H 94
--- NOTE | 2018-11-11 13:46 | Family Medicine Progress Note ---
Date of Service November 11, 2018 Assessment & Plan (1) Traumatic pneumohemothorax: Ms. Cuevas is an otherwise healthy 68 year-old woman who was admitted on 11/06/18 for a traumatic pneumothroax secondary to a mechanical fall. ED course: CT scan revealed fractures of the R 4th through 9th ribs, non- displaced transverse process fractures of T7-T10 vertebrae, and small right pneumothorax, max size 1cm. CXR showed small right apical pneumothorax with max pleural separation 1.7 cm. Patient admitted for serial monitoring and pain management. (1) Traumatic pneumothorax- improving on serial CXR (11/10) -CT surgery consulted, appreciate recs -continue oxygen 2L via [place] to hasten resolution -continue Dilaudid MECHANIC CHIEF; continue to trial oral Oxycodone, 5mg, PO as tolerable in an effort to transition to a pain control regimen suitable for discharge -additional pain control regimen: Lidocaine 5% patch qAM, Acetaminophen, 650mg, PO, scheduled q6h, Toradol, 10mg, PO, scheduled q6h -prn zofran for nausea -incentive spirometry to prevent complications like PNA - continue Miralax TID (2) Hyponatremia -resolving -Na level 130 today (11/11) down from 131 yesterday, but up from low of 123 (11/08) -patient continues to mentate normally (3) Acute SIADH -resolving ---Na level 130 today (11/11) down from 131 yesterday, but up from low of 123 (11/08) -serum osms 259, urine osms 7 (11/08) -several possible etiologies include medication imposed (on tramadol, opiates), pain afferent signal induction, or underlying lung pathology (traumatic pneumothorax) -no longer on fluid restriction -tramadol d/c -perhaps with improved pain control on Dilaudid MECHANIC CHIEF, afferent signals will reduce (4) Vertebral Compression Fractures -noted as incidental finding on CT (multiple fractures felt to be old) -ordered Vitamin D, 2,000 IU, PO, daily -recommended discussing possible DEXA scan with PCP as an outpatient (5) Osteoarthritis -holding home meloxicam given elevated risk of bleeding secondary to sustained chest trauma FEN/GI: heart healthy diet PT/OT: ordered DVT ppx: Lovenox, 40mg, SQ, qAM CODE STATUS: FULL DISPO: Med/Surg (2) Pulmonary contusion: -secondary to multiple rid fractures and transverse process fractures -clinically moving air better (3) Multiple fractures of ribs of right side: (4) Fracture of transverse process of thoracic vertebra: (5) Fall from slip, trip, or stumble: (6) Hyponatremia: (7) SIADH (syndrome of inappropriate ADH production): (8) Calf tenderness: resolved Supervising Physician Co-Signing Physician Notes I personally examined the patient and verified all chavarria points of history and exam, discussed case, and agree with decision making with Dr Abarca. Doing overall much better with pain control. Is a little nervous about going home just yet but she is starting a better pain control and thinks hopefully by tomorrow she would be other do okay without the MECHANIC CHIEF. vitals noted nad breathing unlabored no pallor or icterus. No focal neuro deficits. Mental status intact. fall (mechanical) with multiple rib fractures and transverse process fractures - continue tylenol and toradol, continue lidocaine patch, MECHANIC CHIEF helping significantly. Transitioning to oral pain meds, oxycodone seems to be working reasonably well, continue current dosing into tomorrow, hopefully home then. acute SiADH - sodium dropped precipitiously, urine/serum osms c/w SiADH. most likely multifactorial between pneumothorax, pain, possibly effects of meds (tramadol >> toradol > other) -pneumothorax resolving -Pain control has improved -stopped tramadol, low threshold to stop toradol although less likely to be culprit and sodium improved -Stop fluid restriction -Sodium overall stable, anticipate this will probably take a few weeks to totally resolved. old-appearing thoracic compression fractures -presumed osteoporosis -continue vitamin D for now -outpt w/u for bone health DVT prophylaxisLovenox Otherwise as above Subjective patient resting in bed. She says that after walking the halls this morning, she requested oral oxycodone pill from the nurse. By the time the nurse returned with the pill, she needed to press the Dilaudid MECHANIC CHIEF button. She will attempt later today to trial the oxycodone in place of the MECHANIC CHIEF. At this time, she feels she may need one more overnight in the hospital. Review of Systems Review of Systems: Constitutional: No fevers, chills, night sweats Cardiovascular: No chest pain, palpitations or pedal edema Respiratory: No SOB, cough, wheezing; Patient reports pain on deep inspiration Gastrointestinal: no nausea/vomiting, no diarrhea, constipation, or abdominal pain MSK: pain over right sided thoracic region (congruent with site of injury) Extremities: denies calf pain Physical Exam Constitutional: well developed, well nourished and cooperative Eyes: + anicteric sclerae Respiratory: normal respiratory effort; does not use accessory muscles, no cough and no nasal flaring Auscultation: no crackles, no wheezes and no pleural rub moving air much better in R lower lung field Cardiovascular: RRR, no murmur, no edema Heart Sounds: normal S1 and normal S2; no click, no gallop, no murmur and no cardiac rub Extremities: no pedal edema Gastrointestinal (Abdomen): normal bowel sounds, soft, nontender, no hepatosplenomegaly Inspection/Auscultation: abdomen not distended Percussion/Palpation: abdomen soft; abdomen nontender Neurologic: awake Psychiatric: Orientation: alert and oriented x 3 Results & Data Vital Signs (Past 12 Hours) Vital Signs Temp Pulse Resp BP Pulse Ox 11/11/18 11:23 36.7 C 73 18 143/83 H 95 11/11/18 07:30 36.6 C 75 17 145/74 H 94 11/11/18 04:11 36.9 C 78 16 146/85 H 94 Laboratory Results 11/11/18 Range/Units 05:58 Sodium 130 L (136-145) mmol/L Potassium 4.5 (3.5-5.1) mmol/L Chloride 97 L (98-107) mmol/L Carbon Dioxide 28 (21-32) mmol/L Anion Gap 5.0 (3-11) BUN 9 (7-18) mg/dl Creatinine 0.57 L (0.6-1.2) mg/dl Est Cr Clr Drug Dosing 101.7 ml/min Est GFR ( Amer) 108.9 Est GFR (Non-Af Amer) 93.9 BUN/Creatinine Ratio 16.4 (10-20) Glucose 90 (70-99) mg/dl Calcium 8.4 L (8.5-10.1) mg/dl Medications Administered Current Inpatient Medications Acetaminophen (Tylenol) 650 mg PO Q6H [facility] Stop: 12/07/18 19:59 Last Admin: 11/11/18 13:34 Dose: 650 mg Documented by: Al Hydrox/Mg Hydrox/Simethicone (Maalox) 15 ml PO Q4H PRN PRN Reason: Dyspepsia Stop: 12/06/18 23:20 Enoxaparin Sodium (Lovenox) 40 mg SQ QAM [facility] Stop: 12/08/18 19:59 Last Admin: 11/11/18 07:38 Dose: 40 mg Documented by: Hydromorphone HCl (Dilaudid [employer]) 25 mg IV PRN PRN; Protocol PRN Reason: Pain Stop: 11/22/18 12:53 Last Admin: 11/08/18 14:50 Dose: 25 mg Documented by: Ketorolac Tromethamine (Toradol) 10 mg PO Q6H [facility] Stop: 11/12/18 13:59 Last Admin: 11/11/18 13:34 Dose: 10 mg Documented by: Lidocaine (Lidoderm 5%) [facility] [place] [facility] Stop: 12/07/18 12:59 Last Admin: 11/11/18 07:37 Dose: 1 patch Documented by: Magnesium Hydroxide (Milk Of Magnesia) 30 ml PO Q12H PRN PRN Reason: Constipation Stop: 12/06/18 23:20 Miscellaneous (Remove Lidoderm Patch) 1 ea N/A DAILY@2100 [facility] Stop: 12/07/18 20:59 Last Admin: 11/10/18 20:22 Dose: 1 ea Documented by: Ondansetron HCl (Zofran) 4 mg IV Q4H PRN PRN Reason: Nausea Stop: 12/06/18 23:20 Last Admin: 11/10/18 09:26 Dose: 4 mg Documented by: Oxycodone HCl (Roxicodone Immediate Rel) 5 mg PO Q4 PRN PRN Reason: Pain Stop: 11/23/18 10:14 Last Admin: 11/11/18 16:45 Dose: 5 mg Documented by: Polyethylene Glycol (Miralax Powder Packet) 17 gm PO TID [facility] Stop: 12/09/18 13:59 Last Admin: 11/11/18 13:34 Dose: 17 gm Documented by: Vitamin D (Vitamin D3) 2,000 units PO [facility] [place] Stop: 12/07/18 08:59 Last Admin: 11/11/18 07:37 Dose: 2,000 units Documented by: PG Care Time/CCT Total # of Minutes Spent Total Time Spent with Patient: Total time spent is greater than 50% in coordination of care (as documented) at patient's floor/unit and/or counseling patient: Resident Activity Tracking Resident Involvement: Resident Care Provided Care Provided: Adult Hospital Medicine (1) Multiple fractures of ribs of right side Encounter type: initial encounter Fracture type: closed Qualified Code(s): S22.41XA - Multiple fractures of ribs, right side, initial encounter for closed fracture (2) Fracture of transverse process of thoracic vertebra Encounter type: initial encounter Fracture type: closed Qualified Code(s): S22.009A - Unspecified fracture of unspecified thoracic vertebra, initial encounter for closed fracture (3) Pulmonary contusion Encounter type: initial encounter Laterality: right Qualified Code(s): S27.321A - Contusion of lung, unilateral, initial encounter
[2018-11-12] MEDS: KETOROLAC TROMETHAMINE 10 MG TABLET PO SCH ×2 (02:02→07:36)
[2018-11-12] MEDS: ACETAMINOPHEN 325 MG TAB PO SCH ×2 (02:03→07:37)
[2018-11-12] MEDS: OXYCODONE HCL IR 5 MG TAB (IMMEDIATE RELEASE) PO PRN ×2 (03:40→09:39)
--- NOTE | 2018-11-12 07:27 | Discharge Summary ---
Date of Service November 12, 2018 Admission HPI Per Admitting Provider 68F with PMH OA who presents after mechanical fall with resultant rib fractures and traumatic pneumothorax requiring 1-3L via NC. States she was getting out of her above ground pool when she slipped on the ladder and hit her right side of her back on the side of the pool and then again on the ladder itself. She came to ED for further management, and was not short of breath, but was complaining of pain in that area. CT scan revealed multifocal fractures of the right fourth through ninth ribs, and small right pneumothorax max 1cm. CXR upright for baseline showed small right apical pneumothorax with max pleural separation 1.7 cm. Pt did not require oxygen upon arrival to the ED, but did after receiving IV dilaudid. Denies chest tightness or dyspnea. Endorses some bruising on right upper arm. Daughter and friend in the room corroborate the history. PMH arthritis, on mobic PSH noncontributory SH Nonsmoker. Lives at home, independent Admission Exam Per Admitting Provider Vitals noted and within normal limits with the exception of HTN GENERAL: Awake, alert to person, place, and time, nontoxic-appearing, in no distress. HENT: Normocephalic, atraumatic. Nasal cannula in place. Mucus membranes appear moist. EYES: Normal conjunctiva. Sclera non-icteric. EOMI. NECK: Supple. Full range of motion. No JVD. Trachea midline. RESPIRATORY: Clear to auscultation. Normal work of breathing. CARDIAC: Regular rate, normal rhythm. Extremities warm and well perfused, ABDOMEN: Soft, non-distended. Bowel sounds are normal. LOWER EXTREMITIES: Inspection of calves reveal equal size bilaterally. They are non-tender. No edema. No discoloration. NEURO: No gross focal motor deficits noted. Sensation in tact. CN II-XII grossly in tact. . PSYCH: Appropriate mood and affect. Cooperative. Principal Diagnosis Traumatic Pneumothorax Discharge Exam Constitutional well developed, well nourished and cooperative Eyes + anicteric sclerae Respiratory normal respiratory effort; does not use accessory muscles, no cough and no nasal flaring Auscultation: no crackles, no wheezes and no pleural rub moving air well in all lung wilson, bilaterally Cardiovascular RRR, no murmur, no edema Heart Sounds: normal S1 and normal S2; no click, no gallop, no murmur and no cardiac rub Extremities: no pedal edema Gastrointestinal (Abdomen) normal bowel sounds, soft, nontender, no hepatosplenomegaly Inspection/Auscultation: abdomen not distended Percussion/Palpation: abdomen soft; abdomen nontender Neurologic awake Psychiatric Orientation: alert and oriented x 3 Discharge Data Allergies Allergy/AdvReac Type Severity Reaction Status Date / Time No Known Allergies Allergy Unverified 11/07/15 06:17 Consultations 11/06/18 20:55 ED Decision to Admit Stat 11/06/18 23:21 Consult Thoracic Surgery Routine Ordered Studies 11/06/18 18:55 CT chest wo con Stat Hospital Course (1) Traumatic pneumohemothorax: Ms. Cuevas is an otherwise healthy 68 year-old woman who was admitted to [facility] from 11/06/18-11/12/18 for a traumatic pneumothorax secondary to a mechanical fall. ED course: CT scan revealed fractures of the R 4th through 9th ribs, non- displaced transverse process fractures of T7-T10 vertebrae, and small right pneumothorax, max size 1cm. CXR showed small right apical pneumothorax with max pleural separation 1.7 cm. Patient admitted for serial monitoring and pain management. Traumatic pneumothorax was followed throughout hospital stay and serial CXRs showed evidence it was improving (initial size 17mm, size on discharge <7mm). CT surgery was consulted and recommended no further follow up. Patient was treated supplemental oxygen (2L via NC) to hasten resolution. She required the use of a Diluadid [employer] for pain control, but transitioned nicely to oral anagelsics. Her pain regimen on discharge was Oxycodone, 5mg, PO, q4h, Acetaminophen, 650mg, PO, q6h, Torodol, 10mg, PO, q6h, and Lidocaine 5% patches, qAM. Advised patient to continue to use OTC Miralax prn after discharge while on opioids. (2) Hyponatremia -developed during hospital secondary to acute SIADH, improving by discharge. Na level as low as 123 (11/08), at 131 on discharge. Patient was never symptomatic. (3) Acute SIADH -exact etiology is unknown. Possible etiologies include medication imposed (on tramadol, opiates), pain afferent signal induction, or underlying lung pathology (traumatic pneumothorax). Serum osms 259, urine osms 7 (11/08), Na reached a low of 123. Resolving with a Na level of 131 on day of discharge. (4) Pulmonary Contusion - secondary to multiple right sided rib and transverse process fractures. Visualized on CT clarke on admission. Air movement throughout all lung wilson improved throughout hospital stay. (5) Calf tenderness - resolved. (6) Vertebral Compression Fractures -noted as incidental finding on CT (multiple fractures felt to be old) -ordered Vitamin D, 2,000 IU, PO, daily -recommended discussing possible DEXA scan with PCP as an outpatient (7) Osteoarthritis - home meloxicam was held during hospitalization given elevated risk of bleeding secondary to sustained chest trauma; patient may resume at discha (2) Pulmonary contusion: (3) Multiple fractures of ribs of right side: (4) Fracture of transverse process of thoracic vertebra: (5) Fall from slip, trip, or stumble: (6) Hyponatremia: (7) SIADH (syndrome of inappropriate ADH production): (8) Calf tenderness: Total Time Total Time Spent Total Time Spent (In Minutes): greater than 30 minutes Discharge Plan Discharge Items Patient Disposition: Home - Self-Care Reason For Visit: TRAUMATIC PNEUMOTHORAX Discharge Diagnosis: Traumatic Pneumothorax Discharge Goals: Decrease discomfort Activity: Resume your previous activity Activity Comment: as tolerated Non-emergency contact: Primary Care Provider Call non-emergency contact if: you have any medication questions and your pain is not controlled Follow-up/Referrals: Yusuf Pichardo MD [Primary Care Provider] - 11/16/18 3:10 pm (Please, follow up at Dr. Bhavesh Pichardo's office with his associate, Any SCHWAB, on WednesdayNovember 16 at 3:10 pm. *If you need to change this appointment, call their office at [phone].) Diet: Heart Healthy Addtl Provider Instructions: You were hospitalized at [facility] from 11/06/18-11/12/28 for a pneumothorax (air between the lung and the lung wall) secondary to the fall you sustained. CT of the chest revealed that you fractured multiple ribs (4-9) and the transverse processes of several vertebrae (T7-T10) on the right side. The fractures also resulted in a pulmonary contusion (bruising on the right lung). Cardiothoracic surgery was consulted during your hospital stay (Dr. Reyes). A series of CXR showed evidence of improvement in the size of your pneumothorax. You may continue to use the following pain medication at home: Lidocaine 5% patches daily; Acetaminophen (Tylenol) 650ng by mouth, every 8 hours, ibuprofen 600mg by mouth every 6 hours, and oxycodone, 5mg, by mouth, every 6 hours as needed for severe pain. Because the pain and pain medications can cause constipation, stay on top of things with the miralax 17g at least once a day (and as much as three times a day) to keep your bowels moving. As we discussed, the rib and thoracic pain might take the better part of November to go away, but if you're still having significant pain into December, it would then be more likely that surrounding muscles are staying in spasm than it would be that you're still suffering from actual bony pain -- if this were to occur, then it would be time for Dr Pichardo to refer you to one of our DO residents for manipulat shiloh medicine to loosen the rib and thoracic muscles (and/or for him to give a trial of accupuncture). You should follow up with your PCP within one week of your discharge. Prescriptions: New acetaminophen [Tylenol Arthritis Pain] 650 mg tablet extended release 650 mg PO Q8H Qty: 30 RF: 0 ibuprofen 600 mg tablet 600 mg PO Q8H Qty: 30 RF: 0 oxycodone 5 mg capsule 5 mg PO QID Qty: 45 RF: 0 Discontinued meloxicam [Mobic] 15 mg tablet 15 mg PO DAILY PRN (Reason: Pain) RF: 0 Stand-Alone Forms: [facility] Discharge Orders: Discharge Order (Routine); Ordered 11/12/18 Ordered By: Luciana Abarca Admission Data Admit Date/Time: 11/09/18 08:29 Attending Provider: Norman Zepeda Admit Provider: Jennifer Pierce Primary Care Provider: Yusuf Pichardo Other Providers: Randall Barnes ; Diaz Reyes Service: Medical Other Interventions: Discharge Summary Assessment (RN) Last Done: 11/12/18 10:05 DC Date/Time DO NOT enter until pt leaves facility: 11/12/18 11:04 Supervising Physician Co-Signing Physician Notes I personally examined the patient and verified all chavarria points of history and exam, discussed case, and agree with decision making with Dr Abarca. Doing overall much better with pain control. Feeling up to going home. vitals noted nad breathing unlabored no pallor or icterus. No focal neuro deficits. Mental status intact. fall (mechanical) with multiple rib fractures and transverse process fractures - stable for home now. Discussed slowly working her way off of her current regimen, but will discharge on Tylenol, ibuprofen, oxycodone, lidocaine patch. Discussed ADRs and cautions in regards to follow for and using her meds. Also discussed that if her pain persist beyond about a month, it would be time to look at it as secondary muscle spasm rather than ongoing pain from a primary fractures. acute SiADH - sodium dropped precipitiously, urine/serum osms c/w SiADH. most likely multifactorial between pneumothorax, pain, possibly effects of meds (tramadol >> toradol > other) -pneumothorax resolving -Pain control has improved -stopped tramadol, low threshold to stop toradol although less likely to be culprit and sodium improved -Stable for home in this regard, will likely take a week or 2 for this to totally resolve, check outpatient basic metabolic panel next week. old-appearing thoracic compression fractures -presumed osteoporosis -continue vitamin D for now -outpt w/u for bone health DVT prophylaxisLovenox utilized during her stay Otherwise as above Resident Activity Tracking Resident Involvement: Resident Care Provided Care Provided: Adult Hospital Medicine
[2018-11-12] MEDS: LIDOCAINE 5% 1 PATCH TD SCH (07:38)
[2018-11-12] MEDS: POLYETHYLENE (MIRALAX) 17 GM PACK PO SCH (08:29)
[2018-11-12] MEDS: CHOLECALCIFEROL 1,000 UNITS TAB PO SCH (08:29)
[2018-11-12] MEDS: ENOXAPARIN INJ 40 MG/0.4 ML SYR SQ SCH (08:30)
[2018-11-12 08:50] LABS: BUN Creatinine Ratio 17.5 (10-20); Calcium 8.8 mg/dl (8.5-10.1); Creatinine Clr Calc Pharmacy 91.8 ml/min; Est GFR (African American) 104.8; Est GFR (Non-African American) 90.4; Potassium 4.3 mmol/L (3.5-5.1)
== END 2018-11-12 11:04 | disposition home or self-care (01) | DRG 200 ==
LOC: ED 18:12 → 2S 18:12 → SUATTDRO 21:39 → 2S 23:02 → 4W 11-07 12:53
DX: S27.2XXA Traumatic hemopneumothorax, initial encounter; E22.2 Syndrome of inappropriate secretion of antidiuretic hormone; W19.XXXA Unspecified fall, initial encounter; E87.1 Hypo-osmolality and hyponatremia; S20.211A Contusion of right front wall of thorax, initial encounter; S22.008A Other fracture of unspecified thoracic vertebra, initial encounter for closed fracture; S22.41XA Multiple fractures of ribs, right side, initial encounter for closed fracture